=== PATIENT | female | born 1975 | race Caucasian/White ===

== ENCOUNTER 2018-01-30 14:56 | Emergency (ER) | payer OTHER ==
[2018-01-30 16:30] LABS: Absolute Lymphocytes (CBC) 2.4 K/uL (0.7-4.9); Absolute Monocytes 0.8 K/uL (0.1-1.3); Absolute Neutrophil 7.4 K/uL (1.8-8.0); Basophils % 1.2 % (0-1.3); Eosinophils % 2.6 % (0-4.4); Hematocrit 37.7 % (36.0-45.0); Lymphocytes % 21.3 % (15.3-44.8); MCH 24.6 pg (27.0-35.0); MCV 75.8 fL (80-100); MPV 8.7 fL (7.6-11.3); Monocytes % 7.6 % (3.3-12.3); RBC Red Blood Cell Count 4.98 M/uL (3.86-4.86)
[2018-01-30 16:35] LABS: Glomerular Filtration Rate > 60 mL/min (>60)
[2018-01-30 16:36] LABS: Potassium 3.4 mEq/L (3.6-5.0)
[2018-01-30 16:39] LABS: Urine Blood TRACE (NEG); Urine Glucose NEGATIVE (NEG); Urine Protein NEGATIVE (NEG); Urine Specific Gravity 1.015 (1.005-1.030)
[2018-01-30] MEDS ORDERED: NA CHLORIDE 0.9% 1,000 ML ONE (16:39)
[2018-01-30] MEDS ORDERED: ONDANSETRON 4 MG/2 ML VIAL ONE (16:39)
[2018-01-30 16:42] LABS: Bilirubin Direct 0.1 mg/dL (0-0.2); Bilirubin Total 0.5 mg/dL (0.3-1.2); Magnesium 1.7 mg/dL (1.8-2.5); Protein, Total 7.4 g/dL (6.0-8.3)
[2018-01-30] MEDS ORDERED: POTASSIUM CL SA 10 MEQ TAB PO ONE (17:43)
[2018-01-30] MEDS ORDERED: MAGNESIUM SULFATE 1 gm IVPB 1 GM/100 ML BAG IV ONE (17:44)
--- NOTE | 2018-01-30 17:52 | RAD REPORT ---
EXAM DESCRIPTION: Kike Single View01/30/2018 5:44 pm CLINICAL HISTORY: sob COMPARISON: 2009 FINDINGS: The lungs appear clear of acute infiltrate. The heart is normal size IMPRESSION: No acute abnormalities displayed
--- NOTE | 2018-01-30 18:19 | ER ---
Nurse's Notes [facility] Name: Chloe Eaton Age: 42 yrs Sex: Female : 1975 Arrival Date: 01/30/2018 Time: 15:00 Bed 17 Private MD: Diagnosis: Weakness;Dehydration Presentation: 01/30 15:03 Presenting complaint: Patient states: Last night my blood sugar was 209, and I felt hb awful, I was dizzy, weak, and shaky. This morning it is back down to 117, but I still feel bad. Transition of care: patient was not received from another setting of care. Onset of symptoms was January 29, 2018. Care prior to arrival: None. 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 - Social history:: Smoking status: Patient/guardian denies using tobacco. Screenin:39 Abuse screen: Denies threats or abuse. Denies injuries from another. Nutritional aj1 screening: No deficits noted. Tuberculosis screening: No symptoms or risk factors identified. 16:46 Fall Risk None identified. aj1 Assessment: 15:45 General: Appears in no apparent distress. uncomfortable, ill, Behavior is calm, aj1 cooperative. Pain: Denies pain. Neuro: Level of Consciousness is awake, alert, obeys commands, Oriented to person, place, time, situation, Speech is normal, Facial droop on right, Reports dizziness, weakness Denies blurred vision numbness headache. Cardiovascular: Denies chest pain, Heart tones S1 S2 present Patient's skin is warm and dry. Respiratory: Reports shortness of breath Airway is patent Respiratory effort is even, unlabored, Respiratory pattern is regular, symmetrical, Breath sounds are clear bilaterally. Denies cough. GI: Abdomen is non-distended, Bowel sounds present X 4 quads. Abd is soft and non tender X 4 quads. Reports nausea, Patient currently denies diarrhea, vomiting. : Reports urinary frequency. EENT: No signs and/or symptoms were reported regarding the EENT system. Derm: No signs and/or symptoms reported regarding the dermatologic system. Skin is pink, warm \T\ dry. normal. Musculoskeletal: No signs and/or symptoms reported regarding the musculoskeletal system. Circulation, motion, and sensation intact. 16:45 Reassessment: Patient appears in no apparent distress at this time. No changes from aj1 previously documented assessment. Patient and/or family updated on plan of care and expected duration. Pain level reassessed. Patient is alert, oriented x 3, equal unlabored respirations, skin warm/dry/pink. 17:44 Reassessment: Patient appears in no apparent distress at this time. No changes from aj1 previously documented assessment. Patient and/or family updated on plan of care and expected duration. Pain level reassessed. Patient is alert, oriented x 3, equal unlabored respirations, skin warm/dry/pink. 18:52 Reassessment: Patient appears in no apparent distress at this time. No changes from aj1 previously documented assessment. Patient and/or family updated on plan of care and expected duration. Pain level reassessed. Patient is alert, oriented x 3, equal unlabored respirations, skin warm/dry/pink. Vital Signs: 15:05 BP 165 / 101; Pulse 111; Resp 20; Temp 98.1; Pulse Ox 100% on R/A; Weight 117.93 kg; hb Height 5 ft. 6 in. (167.64 cm); Pain 0/10; 16:33 BP 117 / 72; Pulse 85; Resp 18; Pulse Ox 95% on R/A; aj1 17:45 BP 130 / 79; Pulse 85; Resp 18; Pulse Ox 95% on R/A; aj1 18:53 BP 135 / 87; Pulse 91; Resp 18; Pulse Ox 95% on R/A; aj1 15:05 Body Mass Index 41.96 (117.93 kg, 167.64 cm) hb ED Course: 15:00 Patient arrived in ED. sb2 15:04 Triage completed. hb 15:05 Arm band placed on right wrist. hb 15:24 Julio Zimmerman PA is PHCP. jr8 15:24 Zane Camp MD is Attending Physician. jr8 15:44 Vanessa Pendleton RN is Primary Nurse. aj1 16:00 No provider procedures requiring assistance completed. Initial lab(s) drawn, by me, aj1 sent to lab. Inserted saline lock: 20 gauge in right antecubital area, using aseptic technique. Blood collected. 16:39 Patient has correct armband on for positive identification. Bed in low position. Call aj1 light in reach. Side rails up X 1. Adult w/ patient. Pulse ox on. NIBP on. 17:33 PHCP role handed off by Julio Zimmerman PA kb 17:33 Jenna Peterson FNP-C is PHCP. kb 17:39 X-ray completed. Portable x-ray completed in exam room. Patient tolerated procedure bb2 well. 17:44 XRAY Chest (1 view) In Process Unspecified. EDMS 19:14 IV discontinued, intact, bleeding controlled, No redness/swelling at site. Pressure aj1 dressing applied. Administered Medications: 16:32 Drug: Zofran 4 mg Route: IVP; Site: right antecubital; aj1 19:00 Follow up: Response: No adverse reaction aj1 16:33 Drug: NS 0.9% 1000 ml Route: IV; Rate: 1000 ml; Site: right antecubital; aj1 19:00 Follow up: IV Status: Completed infusion; IV Intake: 1000ml aj1 17:28 Drug: Potassium Chloride 40 mEq Route: PO; aj1 18:54 Follow up: Response: No adverse reaction aj1 17:29 Drug: Magnesium Sulfate 1 grams Route: IVPB; Infused Over: 1 hrs; Site: right aj1 antecubital; 18:54 Follow up: IV Status: Completed infusion; IV Intake: 100ml aj1 Intake: 18:54 IV: 100ml; Total: 100ml. aj1 19:00 IV: 1000ml; Total: 1100ml. aj1 Outcome: 18:18 Discharge ordered by . kb 19:14 Discharged to home ambulatory. aj1 19:14 Condition: good 19:14 Discharge instructions given to patient, Instructed on discharge instructions, follow up and referral plans. Demonstrated understanding of instructions, follow-up care. 19:19 Patient left the ED. aj1 Signatures: Dispatcher [employer] EDMS NicholasTrevorJenna, IVAN-C DAY CARE HOME PROVIDER-CkVanessa Nguyen RN RN aj1 Julio Zimmerman PA PA jr8 Annabella Borges RN RN Marylou Tomlinson bb2 Jeri Paul sb2 Corrections: (The following items were deleted from the chart) 16:32 16:32 Zofran 4 mg IVP in left antecubital aj1 aj1 45 16:39 General: Appears in no apparent distress. uncomfortable, ill, Behavior is calm, aj1 cooperative, aj1 16:39 Pain: Denies pain. aj1 1 16:39 Neuro: Level of Consciousness is awake, alert, obeys commands, Oriented to aj1 person, place, time, situation, Speech is normal, Facial droop on right, Reports dizziness, weakness Denies blurred vision numbness headache aj1 :45 16:39 Cardiovascular: Denies chest pain, Heart tones S1 S2 present Patient's skin is aj1 warm and dry. aj1 :45 16:39 Respiratory: Reports shortness of breath Airway is patent Respiratory effort is aj1 even, unlabored, Respiratory pattern is regular, symmetrical, Breath sounds are clear bilaterally. Denies cough, aj1 16:39 GI: Abdomen is non-distended, Bowel sounds present X 4 quads. Abd is soft and non aj1 tender X 4 quads. Reports nausea, Patient currently denies diarrhea, vomiting, aj11 20: 16:39 : Reports urinary frequency, aj1 aj1 16:39 EENT: No signs and/or symptoms were reported regarding the EENT system. aj1 16:39 Derm: No signs and/or symptoms reported regarding the dermatologic system. Skin aj1 is pink, warm \T\ dry. normal, aj1 16:39 Musculoskeletal: No signs and/or symptoms reported regarding the musculoskeletal aj1 system. Circulation, motion, and sensation intact. aj1
--- NOTE | 2018-01-30 18:19 | EDPHYS ---
Physician Documentation [facility] Name: Chloe Eaton Age: 42 yrs Sex: Female : 1975 Arrival Date: 01/30/2018 Time: 15:00 Bed 17 Private MD: ED Physician Zane Camp HPI: 01/30 16:02 This 42 yrs old Female presents to ER via Ambulatory with complaints of Blood jr8 Sugar Problem. 16:02 Patient stated that she had elevated blood glucose levels yesterday and mildly elevated jr8 today. Has been feeling, weak, dizzy, short of breath. Has also had frequent urination and nausea. Severity of symptoms: At their worst the symptoms were moderate in the emergency department the symptoms are unchanged. The patient has not experienced similar symptoms in the past. The patient has not recently seen a physician. 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 - Social history:: Smoking status: Patient/guardian denies using tobacco. ROS: 16:02 Eyes: Negative for injury, pain, redness, and discharge, ENT: Negative for injury, jr8 pain, and discharge, Neck: Negative for injury, pain, and swelling, Cardiovascular: Negative for chest pain, palpitations, and edema, Back: Negative for injury and pain, MS/Extremity: Negative for injury and deformity, Skin: Negative for injury, rash, and discoloration, Neuro: Negative for headache, weakness, numbness, tingling, and seizure. 16:02 Constitutional: Positive for fatigue, malaise. 16:02 Respiratory: Positive for shortness of breath. 16:02 Abdomen/GI: Positive for nausea, Negative for abdominal pain, vomiting, diarrhea, abdominal cramps, abdominal distension, anorexia, dysphagia, hematemesis, black/tarry stool, rectal pain, rectal bleeding, bowel incontinence, flatulence. 16:02 Endocrine: Positive for polydipsia, polyuria. Exam: 16:02 Eyes: Pupils equal round and reactive to light, extra-ocular motions intact. Lids and jr8 lashes normal. Conjunctiva and sclera are non-icteric and not injected. Cornea within normal limits. Periorbital areas with no swelling, redness, or edema. ENT: Nares patent. No nasal discharge, no septal abnormalities noted. Tympanic membranes are normal and external auditory canals are clear. Oropharynx with no redness, swelling, or masses, exudates, or evidence of obstruction, uvula midline. Mucous membranes moist. Neck: Trachea midline, no thyromegaly or masses palpated, and no cervical lymphadenopathy. Supple, full range of motion without nuchal rigidity, or vertebral point tenderness. No Meningismus. Cardiovascular: Sinus tachycardia with a normal S1 and S2. No gallops, murmurs, or rubs. Normal PMI, no JVD. No pulse deficits. Respiratory: Lungs have equal breath sounds bilaterally, clear to auscultation and percussion. No rales, rhonchi or wheezes noted. No increased work of breathing, no retractions or nasal flaring. Abdomen/GI: Soft, non-tender, with normal bowel sounds. No distension or tympany. No guarding or rebound. No evidence of tenderness throughout. Back: No spinal tenderness. No costovertebral tenderness. Full range of motion. Skin: Warm, dry with normal turgor. Normal color with no rashes, no lesions, and no evidence of cellulitis. MS/ Extremity: Pulses equal, no cyanosis. Neurovascular intact. Full, normal range of motion. Neuro: Awake and alert, GCS 15, oriented to person, place, time, and situation. Cranial nerves II-XII grossly intact. Motor strength 5/5 in all extremities. Sensory grossly intact. Cerebellar exam normal. Normal gait. Vital Signs: 15:05 BP 165 / 101; Pulse 111; Resp 20; Temp 98.1; Pulse Ox 100% on R/A; Weight 117.93 kg; hb Height 5 ft. 6 in. (167.64 cm); Pain 0/10; 16:33 BP 117 / 72; Pulse 85; Resp 18; Pulse Ox 95% on R/A; aj1 17:45 BP 130 / 79; Pulse 85; Resp 18; Pulse Ox 95% on R/A; aj1 18:53 BP 135 / 87; Pulse 91; Resp 18; Pulse Ox 95% on R/A; aj1 15:05 Body Mass Index 41.96 (117.93 kg, 167.64 cm) hb MDM: 15:24 Patient medically screened. 8 17:21 Data reviewed: vital signs, nurses notes, lab test result(s), and as a result, I will jr8 discharge patient. Data interpreted: Pulse oximetry: on room air is 95 %. Interpretation: normal. Counseling: I had a detailed discussion with the patient and/or guardian regarding: the historical points, exam findings, and any diagnostic results supporting the discharge/admit diagnosis, lab results, the need for outpatient follow up, a family practitioner, to return to the emergency department if symptoms worsen or persist or if there are any questions or concerns that arise at home. 01/30 15:35 Order name: Basic Metabolic Panel; Complete Time: 16:43 [facility] 01/30 15:35 Order name: CBC with Diff; Complete Time: 16:37 01/30 15:35 Order name: Creatinine for Radiology; Complete Time: 16:37 01/30 15:35 Order name: Hepatic Function; Complete Time: 16:43 01/30 15:35 Order name: Lipase; Complete Time: 16:43 01/30 15:35 Order name: Magnesium; Complete Time: 16:43 01/30 15:36 Order name: DD; Complete Time: 16:38 01/30 16:36 Order name: Urine Dipstick--Ancillary (enter results); Complete Time: 16:42 01/30 15:35 Order name: IV Saline Lock; Complete Time: 16:16 01/30 15:35 Order name: Labs collected and sent; Complete Time: 16:16 01/30 15:35 Order name: Urine Dipstick-Ancillary (obtain specimen); Complete Time: 16:16 01/30 16:36 Order name: Urine --Ancillary (enter results); Complete Time: 16:42 01/30 17:22 Order name: XRAY Chest (1 view); Complete Time: 17:53 Administered Medications: 16:32 Drug: Zofran 4 mg Route: IVP; Site: right antecubital; aj1 19:00 Follow up: Response: No adverse reaction aj1 16:33 Drug: NS 0.9% 1000 ml Route: IV; Rate: 1000 ml; Site: right antecubital; aj1 19:00 Follow up: IV Status: Completed infusion; IV Intake: 1000ml aj1 17:28 Drug: Potassium Chloride 40 mEq Route: PO; aj1 18:54 Follow up: Response: No adverse reaction aj1 17:29 Drug: Magnesium Sulfate 1 grams Route: IVPB; Infused Over: 1 hrs; Site: right aj1 antecubital; 18:54 Follow up: IV Status: Completed infusion; IV Intake: 100ml aj Disposition: 01/31 07:07 Co-signature as Attending Physician, Zane Camp MD I agree with the assessment and linda plan of care. Disposition: 01/30/18 18:18 Discharged to Home. Impression: Weakness, Dehydration. - Condition is Stable. - Discharge Instructions: Weakness, [id number], Dehydration, Adult, [id number]. - Medication Reconciliation Form, Thank You Letter, Antibiotic Education, Prescription Opioid Use, Work release form form. - Follow up: Emergency Department; When: As needed; Reason: Worsening of condition. Follow up: Private Physician; When: 2 - 3 days; Reason: Recheck today's complaints, Continuance of care, Re-evaluation by your physician. Signatures: Dispatcher [employer] Jenna Hanley, SHERICE LOVE-Vanessa Ng RN RN aj1 Zane Camp MD MD cha Roszak, Josh, PA PA jr8 Annabella Borges RN RN Corrections: (The following items were deleted from the chart) 01/30 16:22 15:43 Basic Metabolic Panel ordered. EDMS EDMS 16:22 15:43 CBC with Automated Diff ordered. EDMS EDMS 16:22 15:43 D-Dimer ordered. EDMS EDMS 16:22 15:43 Lipase ordered. EDMS EDMS 16:22 15:43 Liver (Hepatic) Function ordered. EDMS EDMS 16:22 15:43 Magnesium ordered. EDMS EDMS
== END 2018-01-30 19:19 | disposition home or self-care (01) ==
LOC: ER 14:56
DX: E86.0 Dehydration (principal); R11.0 Nausea; I10 Essential (primary) hypertension; E11.9 Type 2 diabetes mellitus without complications; Z88.0 Allergy status to penicillin; Z88.1 Allergy status to other antibiotic agents
CPT/HCPCS: 36415; 71045; 80048; 80076; 81003; 81025; 83690; 83735; 85025; 85379; 96361; 96365; 96375; 99284; J2405; J3475; J7030

== ENCOUNTER 2018-02-04 13:41 | Emergency (ER) | payer OTHER ==
[2018-02-04] MEDS ORDERED: ONDANSETRON 4 MG/2 ML VIAL ONE (14:20)
[2018-02-04] MEDS ORDERED: NA CHLORIDE 0.9% 1,000 ML ONE ×2 (14:20→16:45)
[2018-02-04 14:42] LABS: Absolute Lymphocytes (CBC) 1.6 K/uL (0.7-4.9); Absolute Monocytes 0.8 K/uL (0.1-1.3); Basophils % 1.3 % (0-1.3); Eosinophils % 2.2 % (0-4.4); Hematocrit 39.4 % (36.0-45.0); Lymphocytes % 14.9 % (15.3-44.8); MCH 24.6 pg (27.0-35.0); MCV 76.4 fL (80-100); MPV 8.7 fL (7.6-11.3); Monocytes % 7.4 % (3.3-12.3); RBC Red Blood Cell Count 5.15 M/uL (3.86-4.86)
[2018-02-04 14:52] LABS: Potassium 3.1 mEq/L (3.6-5.0)
[2018-02-04 14:58] LABS: Albumin 4.4 g/dL (3.2-5.5); Bilirubin Direct 0.1 mg/dL (0-0.2); Bilirubin Total 0.6 mg/dL (0.3-1.2); Protein, Total 7.8 g/dL (6.0-8.3)
[2018-02-04 15:12] LABS: Urine Blood NEGATIVE (NEG); Urine Glucose NEGATIVE (NEG); Urine Protein NEGATIVE (NEG); Urine Specific Gravity 1.015 (1.005-1.030); Urine pH 7.5 (5.0-7.0)
[2018-02-04 15:15] LABS: Urine Bacteria <20 /HPF (<20); Urine Culture Reflex Order NOT NEEDED; Urine RBC <5 /HPF (NONE SEEN)
[2018-02-04] MEDS ORDERED: POTASSIUM CL SA 10 MEQ TAB PO ONE (15:58)
--- NOTE | 2018-02-04 16:38 | ER ---
Nurse's Notes [facility] Name: Chloe Eaton Age: 42 yrs Sex: Female : 1975 Arrival Date: 02/04/2018 Time: 13:42 Bed 15 Private MD: Diagnosis: Dehydration;Hypokalemia;Diarrhea, unspecified Presentation: 02/04 13:43 Presenting complaint: EMS states: pt has had nausea vomiting, general weakness X 1 iw week, was recently seen in ER for similar symptoms, was given electrolytes and felt better, denies pain. Transition of care: patient was not received from another setting of care. Onset of symptoms was January 27, 2018. Care prior to arrival: Glucose check: 194. 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 - Social history:: Smoking status: . Screenin:09 Abuse screen: Denies threats or abuse. Denies injuries from another. Nutritional iw screening: No deficits noted. Tuberculosis screening: No symptoms or risk factors identified. Fall Risk None identified. Assessment: 14:00 General: Appears in no apparent distress. Behavior is calm, cooperative. General: iw Reports feeling ill for fatigue for. Pain: Denies pain. Neuro: Level of Consciousness is awake, obeys commands, Oriented to person, place, time, situation, Moves all extremities. Cardiovascular: Patient's skin is warm and dry. Respiratory: Airway is patent. GI: Abdomen is non-distended, Reports nausea. Derm: Skin is pale. Musculoskeletal: Range of motion: intact in all extremities. 16:45 Reassessment: Patient appears in no apparent distress at this time. Patient and/or iw family updated on plan of care and expected duration. Pain level reassessed. pt still c/o nausea, dizziness, ERP notified, new orders given. 18:00 Reassessment: Patient appears in no apparent distress at this time. Patient and/or iw family updated on plan of care and expected duration. Pain level reassessed. Patient is alert, oriented x 3, equal unlabored respirations, skin warm/dry/pink. Patient states feeling better. Patient states symptoms have improved. Vital Signs: 13:47 BP 110 / 75; Pulse 94; Resp 16; Temp 98.1(O); Pulse Ox 96% on R/A; iw 14:46 BP 130 / 86; Pulse 95; Resp 16; Pulse Ox 93% on R/A; mh5 15:52 BP 139 / 78; Pulse 104; Resp 16; Pulse Ox 97% on R/A; mh5 16:04 BP 141 / 83; Pulse 96; Resp 16; Pulse Ox 97% on R/A; iw ED Course: 13:42 Patient arrived in ED. iw 13:44 Donnie Kaiser MD is Attending Physician. tw4 13:45 Triage completed. iw 13:47 Arm band placed on. iw 13:48 Karen Frey, RN is Primary Nurse. iw 14:00 Patient has correct armband on for positive identification. iw 14:45 Missed attempt(s): 22 gauge in left upper arm. 5 15:00 Initial lab(s) drawn, by [facility], sent to lab. Inserted saline lock: 20 gauge in right iw antecubital area, using aseptic technique. Blood collected. 15:26 Urine collected: clean catch specimen, clear. 5 18:20 No provider procedures requiring assistance completed. IV discontinued, intact, iw bleeding controlled, No redness/swelling at site. Pressure dressing applied. Administered Medications: 14:31 Drug: Zofran 4 mg Route: IVP; Site: right antecubital; iw 15:00 Follow up: Response: No adverse reaction iw 14:31 Drug: NS 0.9% 1000 ml Route: IV; Rate: 1 bolus; Site: right antecubital; iw 17:07 Follow up: IV Status: Completed infusion iw 15:45 Drug: Potassium Chloride 40 mEq Route: PO; iw 16:15 Follow up: Response: No adverse reaction iw 16:30 Drug: NS 0.9% 1000 ml Route: IV; Rate: 1 bolus; Site: right antecubital; iw 17:30 Follow up: IV Status: Completed infusion iw 17:00 Drug: Phenergan 12.5 mg Route: IVP; Site: right antecubital; iw 17:30 Follow up: Response: No adverse reaction; Nausea is decreased iw Point of Care Testing: Blood Glucose: 13:51 Blood Glucose: 163 mg/dL; iw Ranges: Outcome: 16:38 Discharge ordered by . tw4 18:20 Discharged to home via wheelchair, with family. iw 18:20 Condition: good 18:20 Discharge instructions given to patient, family, Instructed on discharge instructions, follow up and referral plans. medication usage, Demonstrated understanding of instructions, follow-up care, medications, Prescriptions given X 2. 18:22 Patient left the ED. iw Signatures: Karen Frey, RN Luz Elena Segal [facility] Donnie Kaiser MD MD tw4
--- NOTE | 2018-02-04 16:38 | EDPHYS ---
Physician Documentation [facility] Name: Chloe Eaton Age: 42 yrs Sex: Female : 1975 Arrival Date: 02/04/2018 Time: 13:42 Bed 15 Private MD: ED Physician Donnie Kaiser HPI: 02/04 16:39 This 42 yrs old Female presents to ER via EMS with complaints of tw4 Nausea/Vomiting. 16:39 The patient presents to the emergency department with nausea, vomiting. 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 - Social history:: Smoking status: . ROS: 16:49 Constitutional: Negative for fever, chills, and weight loss, Eyes: Negative for injury, tw4 pain, redness, and discharge, Cardiovascular: Negative for chest pain, palpitations, and edema, Respiratory: Negative for shortness of breath, cough, wheezing, and pleuritic chest pain. 16:49 Back: Negative for injury and pain, MS/Extremity: Negative for injury and deformity, Skin: Negative for injury, rash, and discoloration. 16:49 Constitutional: Positive for malaise. 16:49 Abdomen/GI: Positive for nausea, Negative for abdominal pain, nausea and vomiting, vomiting, diarrhea, constipation, abdominal cramps, anorexia. Exam: 16:49 Constitutional: This is a well developed, well nourished patient who is awake, alert, tw4 and in no acute distress. Head/Face: Normocephalic, atraumatic. Chest/axilla: Normal chest wall appearance and motion. Nontender with no deformity. No lesions are appreciated. Cardiovascular: Regular rate and rhythm with a normal S1 and S2. No gallops, murmurs, or rubs. Normal PMI, no JVD. No pulse deficits. Respiratory: Lungs have equal breath sounds bilaterally, clear to auscultation and percussion. No rales, rhonchi or wheezes noted. No increased work of breathing, no retractions or nasal flaring. Abdomen/GI: Soft, non-tender, with normal bowel sounds. No distension or tympany. No guarding or rebound. No evidence of tenderness throughout. Back: No spinal tenderness. No costovertebral tenderness. Full range of motion. MS/ Extremity: Pulses equal, no cyanosis. Neurovascular intact. Full, normal range of motion. Neuro: Awake and alert, GCS 15, oriented to person, place, time, and situation. Cranial nerves II-XII grossly intact. Motor strength 5/5 in all extremities. Sensory grossly intact. Cerebellar exam normal. Normal gait. Vital Signs: 13:47 BP 110 / 75; Pulse 94; Resp 16; Temp 98.1(O); Pulse Ox 96% on R/A; iw 14:46 BP 130 / 86; Pulse 95; Resp 16; Pulse Ox 93% on R/A; mh5 15:52 BP 139 / 78; Pulse 104; Resp 16; Pulse Ox 97% on R/A; mh5 16:04 BP 141 / 83; Pulse 96; Resp 16; Pulse Ox 97% on R/A; iw MDM: 13:44 Patient medically screened. tw4 16:49 Differential diagnosis: Nonspecific abd pain, gastritis, appendicitis, viral tw4 gastroenteritis, gastroenteritis. Data reviewed: vital signs, nurses notes. Counseling: I had a detailed discussion with the patient and/or guardian regarding: the historical points, exam findings, and any diagnostic results supporting the discharge/admit diagnosis, lab results. Medication response: Phenergan relieved the patient's nausea, Zofran markedly relieved the patient's nausea. Response to treatment: the patient's symptoms have resolved after treatment, nausea gone, and as a result, I will discharge patient. Special discussion: I discussed with the patient/guardian in detail that at this point there is no indication for admission to the hospital. It is understood, however, that if the symptoms persist or worsen the patient needs to return immediately for re-evaluation. 02/04 13:45 Order name: Amylase, Serum; Complete Time: 15:14 tw4 02/04 13:45 Order name: Basic Metabolic Panel; Complete Time: 15:14 tw4 02/04 13:45 Order name: CBC with Diff; Complete Time: 15:14 tw4 02/04 13:45 Order name: Creatinine for Radiology; Complete Time: 15:14 tw4 02/04 13:45 Order name: Hepatic Function; Complete Time: 15:14 tw4 02/04 13:45 Order name: Lipase; Complete Time: 15:14 tw4 02/04 13:45 Order name: Urine Microscopic Only; Complete Time: 16:01 tw4 02/04 15:07 Order name: Urine Dipstick--Ancillary (enter results); Complete Time: 15:14 bd 02/04 15:07 Order name: Urine --Ancillary (enter results); Complete Time: 15:14 bd 02/04 15:27 Order name: Glucose, Ancillary Testing; Complete Time: 16:01 EDMS 02/04 13:45 Order name: IV Saline Lock; Complete Time: 15:08 tw4 02/04 13:45 Order name: Labs collected and sent; Complete Time: 15:08 tw4 02/04 13:45 Order name: Urine Dipstick-Ancillary (obtain specimen); Complete Time: 15:08 tw4 02/04 14:41 Order name: Urine Test (obtain specimen); Complete Time: 15:08 tw4 Administered Medications: 14:31 Drug: Zofran 4 mg Route: IVP; Site: right antecubital; iw 15:00 Follow up: Response: No adverse reaction iw 14:31 Drug: NS 0.9% 1000 ml Route: IV; Rate: 1 bolus; Site: right antecubital; iw 17:07 Follow up: IV Status: Completed infusion iw 15:45 Drug: Potassium Chloride 40 mEq Route: PO; iw 16:15 Follow up: Response: No adverse reaction iw 16:30 Drug: NS 0.9% 1000 ml Route: IV; Rate: 1 bolus; Site: right antecubital; iw 17:30 Follow up: IV Status: Completed infusion iw 17:00 Drug: Phenergan 12.5 mg Route: IVP; Site: right antecubital; iw 17:30 Follow up: Response: No adverse reaction; Nausea is decreased iw Point of Care Testing: Blood Glucose: 13:51 Blood Glucose: 163 mg/dL; iw Ranges: Critical Glucose Levels:Adult <50 mg/dl or >400 mg/dl <40 mg/dl or >180 mg/dl Disposition: 02/04/18 16:38 Discharged to Home. Impression: Dehydration, Hypokalemia, Diarrhea, unspecified. - Condition is Stable. - Discharge Instructions: Food Choices to Help Relieve Diarrhea, Adult, Dehydration, Adult, Diarrhea, Diarrhea, [id number], Hypokalemia, Rehydration, Adult. - Prescriptions for Zofran 4 mg Oral Tablet - take 1 tablet by ORAL route every 12 hours As needed; 6 tablet. Lomotil 2.5- 0.025 mg Oral Tablet - take 1 tablet by ORAL route every 6 hours As needed; 20 tablet. - Work release form, Family Work Release, Medication Reconciliation Form, Thank You Letter, Antibiotic Education, Prescription Opioid Use form. - Follow up: Private Physician; When: As needed; Reason: Recheck today's complaints, Continuance of care, Re-evaluation by your physician. - Problem is new. - Symptoms have improved. Signatures: Dispatcher [employer] Karen Newton, FRANCO RN Donnie Greene MD MD tw4 Corrections: (The following items were deleted from the chart) 15:13 14:42 UA MICROSCOPIC+U.LAB.BRZ ordered. CARMELA CASEY
[2018-02-04] MEDS ORDERED: PROMETHAZINE 25 MG/ML VIAL ONE (17:17)
== END 2018-02-04 18:22 | disposition home or self-care (01) ==
LOC: ER 13:41
DX: E86.0 Dehydration (principal); E87.6 Hypokalemia; R19.7 Diarrhea, unspecified; I10 Essential (primary) hypertension; E11.9 Type 2 diabetes mellitus without complications; Z88.0 Allergy status to penicillin; Z88.1 Allergy status to other antibiotic agents
CPT/HCPCS: 36415; 80048; 80076; 81003; 81015; 81025; 82150; 82962; 83690; 85025; 96361; 96374; 96375; 99284; J2405; J2550; J7030

== ENCOUNTER 2020-11-18 02:58 | Inpatient (IN) | payer OTHER ==
--- OUTSIDE RECORDS SUMMARY | 2020-11-18 03:00 | XMS REPORT | Continuity of Care Document ---
:1975 Author Organization [facility] t Address [address] [place] [address] [address]. [address] [place] [address] Care Team Providers Name Role Phone Lab, Fam Pob I Attending Clinician Unavailable Doctor Unassigned, Name Attending Clinician Unavailable Problems This patient has no known problems. Allergies, Adverse Reactions, Alerts This patient has no known allergies or adverse reactions. Medications This patient has no known medications. Procedures This patient has no known procedures. Encounters Start End Encounter Admission Attending Care Care Encounter Source Date/Time Date/Time Type Type Clinicians Facility Department ID 2020-10-26 2020-10-26 Laboratory Lab, [facility] [id number] 16:19:22 16:39:22 Only Fam Pob I Health [id number] [place] [id number] Professio [phone] [address] 2020-10-26 2020-10-26 Letter Doctor PAULO [id number] 00:00:00 00:00:00 (Out) UnassignedSOFYA [id number] [place] [facility] [phone] [id number] Results This patient has no known results.
--- OUTSIDE RECORDS SUMMARY | 2020-11-18 03:00 | XMS REPORT | Summary of Care ---
:1975 Author Organization [facility] Address [address] [place] [id number] Care Team Providers Name Role Phone Pcp, Does Not Have A Primary Care Provider Reason for Visit Reason Comments LAB Encounter Details Date Type Department Care Team Description 10/26/2020 Laboratory Only [facility] Family Eli Torrez, ATHLETIC COORDINATOR [id number] [place] [address] Exposure to Medicine - [place] [facility], Adc Fam Pob I SARS-associated [address] [place] [address] coronaviru s ([address] Dx) [place] [address] Allergies Not on Filedocumented as of this encounter (statuses as of 10/26/2020) Medications Not on filedocumented as of this encounter (statuses as of 10/26/2020) Active Problems Not on filedocumented as of this encounter (statuses as of 10/26/2020) Social History Tobacco Use Types Packs/Day Years Used Date Never Assessed Sex Assigned at Date Recorded Not on file documented as of this encounter Last Filed Vital Signs Not on filedocumented in this encounter Nursing Notes Nazia Chiang LVN - 10/26/2020 4:20 PM CSTRicardoorlin Eaton is a 45 year old female here for a Rule Out Covid-19 Nasopharyngeal Swab. Patient educated on plan of care for visit, swabbing technique, risks and benefits of test and length of time to receive results. Verbal consent obtained to perform test. CDC Fact Sheet for Patients providedto patient. All droplet and contact precautions taken with appropriate PPE worn while interacting with patient. - Goggles - N95 Mask - Gloves - Gown RR=18 O2 Sat=98% Patient swabbed using appropriate nasopharyngeal technique, and patient tolerated well. Patient was discharged in stable condition. 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 documented in this encounter Plan of Treatment Name Type Priority Associated Diagnoses Date/Ti me COVID-19 (ID NOW LAB Routine Exposure to 10/26/2020 4:20 PM SOFT SHOE DANCER RAPID TESTING) SARS-associated coronavirus Name Type Priority Associated Diagnoses Order S chedule COVID-19 (ID NOW LAB Routine Exposure to SARS-associa al Expected: 10/26/2020, RAPID TESTING) coronavirus Expires: 10/06 Health Maintenance Due Date Last Done Comments Depression Screening 1985 DTaP,Tdap,and Td Vaccines (1 - 1992 Tdap) PAP SMEAR 1994 Breast Cancer Screening 2013 (MAMMOGRAM) INFLUENZA VACCINE (#1) 2020 Colorectal Cancer Screening 2023 PNEUMOCOCCAL 0-64 YEARS COMBINED Aged Out No longer eligible based on SERIES patient's age to complete this topic documented as of this encounter Results Not on filedocumented in this encounter Visit Diagnoses Diagnosis Exposure to SARS-associated coronavirus - Primary documented in this encounter Additional Health Concerns Infection Onset Date Last Indicated Resolved Time COVID-19 Rule Out 10/26/2020 10/26/2020 documented as of this encounter
--- OUTSIDE RECORDS SUMMARY | 2020-11-18 03:00 | XMS REPORT | Summary of Care ---
:1975 Author Organization [facility] - [facility] Address [address] [place] [address] Care Team Providers Name Role Phone Pcp, Does Not Have A Primary Care Provider Encounter Details Date Type Department Care Team Description 10/26/2020 Letter (Out) [facility] [employer] Message s Doctor Unassigned, No [address] [facility] [address] [address] [facility] [phone] [place] [address] Allergies Not on Filedocumented as of this [...] Signs Not on filedocumented in this encounter Plan of Treatment Health Maintenance Due Date Last Done Comments Depression Screening 1985 DTaP,Tdap,and Td Vaccines (1 - 1992 Tdap) PAP SMEAR 1994 Breast Cancer Screening 2013 (MAMMOGRAM) INFLUENZA VACCINE (#1) 2020 Colorectal Cancer Screening 2023 PNEUMOCOCCAL 0-64 YEARS COMBINED Aged Out No longer eligible based on SERIES patient's age to complete this topic documented as of this encounter Results Not on filedocumented in this encounter Additional Health Concerns Infection Onset Date Last Indicated Resolved Time COVID-19 Rule Out 10/26/2020 10/26/2020 documented as of this encounter
[2020-11-18] MEDS ORDERED: NA CHLORIDE 0.9% 2,000 ML ONE (03:41)
--- NOTE | 2020-11-18 03:42 | ER ---
Nurse's Notes [facility] Name: Chloe Eaton Age: 45 yrs Sex: Female : 1975 Arrival Date: 11/18/2020 Time: 03:01 Bed 7 Private MD: Bhavin Bay Diagnosis: SARS-associated coronavirus as the cause of diseases classified elsewhere-Covid 19 positive;Pneumonia due to other specified bacteria;Hypoxemia;Essential (primary) hypertension;Type 2 diabetes mellitus Presentation: 11/18 03:14 Chief complaint: Patient states: I got tested positive last 11/08/[address] yesterday I started to have shortness of breath, headache and fever. Coronavirus screen: Client denies travel out of the [place] in the last 14 days. fatigue, headache, shortness of breath, Client presents with at least one sign or symptom that may indicate coronavirus-19. Standard/surgical mask placed on the client. Provider contacted for isolation considerations. Client reports previous positive COVID test result. Date of collection: November 08, 2020. Ebola Screen: Patient negative for fever greater than or equal to 101.5 degrees Fahrenheit, and additional compatible Ebola Virus Disease symptoms Patient denies exposure to infectious person. Patient denies travel to an Ebola-affected area in the 21 days before illness onset. Initial Sepsis Screen: Does the patient meet any 2 criteria? RR > 20 per min. HR > 90 bpm. Does the patient have a suspected source of infection? Yes: Productive cough/pneumonia Risk Assessment: Do you want to hurt yourself or someone else? Patient reports no desire to harm self or others. Onset of symptoms was November 17, 2020. 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 - Social history:: Smoking status: unknown Patient/guardian denies using alcohol, street drugs. - Family history:: not pertinent. Screenin:31 Abuse screen: Denies threats or abuse. Nutritional screening: No deficits noted. rr5 Tuberculosis screening: No symptoms or risk factors identified. Fall Risk IV access (20 points). Assessment: 03:55 General: Appears uncomfortable, Behavior is restless. Pain: Denies pain. Neuro: Level rv of Consciousness is awake, alert, obeys commands, Oriented to person, place, time, situation. Cardiovascular: Patient's skin is warm and dry. Respiratory: Airway is patent Respiratory effort is labored, Respiratory pattern is tachypnea. Derm: Skin is pink, warm \T\ dry. 04:15 Reassessment: Brian () [phone]. rv 05:19 Reassessment: Patient and/or family updated on plan of care and expected duration. Pain ea level reassessed. Patient is alert, oriented x 3, equal unlabored respirations, skin warm/dry/pink. Patient states feeling better. Patient states symptoms have improved. Vital Signs: 03:14 BP 122 / 85; Pulse 109; Resp 33; Temp 97.2; Pulse Ox 82% on R/A; Weight 117.93 kg; rr5 Height 5 ft. 6 in. (167.64 cm); Pain 5/10; 04:00 BP 122 / 61; Pulse 101; Resp 25; Pulse Ox 90% on 2 lpm NC; ea 03:14 Body Mass Index 41.96 (117.93 kg, 167.64 cm) rr5 ED Course: 03:01 Patient arrived in ED. es 03:01 Bhavin Bay MD is Private Physician. es 03:04 Zane Camp MD is Attending Physician. linda 03:15 Patel Wolfe RN is Primary Nurse. rv 03:17 Triage completed. rr5 03:20 Arm band placed on right wrist. rr5 03:25 Inserted saline lock: 20 gauge in right antecubital area, using aseptic technique. rr5 Blood collected. Oxygen administration via nasal cannula \T\ 2L/min Response to oxygen therapy: symptoms improved. 03:31 Patient has correct armband on for positive identification. Placed in gown. Bed in low rr5 position. Call light in reach. Side rails up X2. ekg monitor on. Pulse ox on. NIBP on. 03:39 Brett Saldaña is Hospitalizing Provider. linda 03:42 Chest Single View XRAY In Process Unspecified. EDMS 04:16 No provider procedures requiring assistance completed. Patient admitted, IV remains in rv place. 04:56 CT Chest For PE Angio In Process Unspecified. EDMS Administered Medications: 03:30 Drug: NS 0.9% (30 ml/kg) 30 ml/kg Route: IV; Rate: bolus; Site: right antecubital; rr5 03:50 Drug: Rocephin 1 grams Route: IV; Rate: per protocol; Site: right antecubital; rv 04:34 Follow up: Response: No adverse reaction; IV Status: Completed infusion; IV Intake: 10mlrv 04:03 Drug: Decadron - Dexamethasone 10 mg Route: IVP; Site: right antecubital; rv 04:54 Follow up: Response: No adverse reaction rv 04:03 Drug: Albuterol HFA Inhaler 2 puffs Route: Inhalation; rv 04:53 Follow up: Response: No adverse reaction rv 04:03 Drug: Aspirin 81 mg Route: PO; rv 04:52 Follow up: Response: No adverse reaction rv 04:04 Drug: Pepcid 20 mg Route: IVP; Site: right antecubital; rv 04:53 Follow up: Response: No adverse reaction rv 04:07 Drug: Zithromax 500 mg Route: IVPB; Infused Over: 1 hrs; Site: right antecubital; rv 04:21 Drug: NS 0.9% 1000 ml Route: IV; Rate: 125 ml/hr; Site: right antecubital; rv 04:53 Follow up: IV Status: Infusion continued upon admission rv 05:16 Drug: Potassium Effervescent Tablet 50 mEq Route: PO; rv Intake: 04:34 IV: 10ml; Total: 10ml. rv Outcome: 03:42 Decision to Hospitalize by Provider. linda 04:16 Instructed on the need for admit, Demonstrated understanding of instructions. rv 05:21 Admitted to ER Hold. Please see [facility] for further documentation. ea 05:21 Condition: stable 11/19 03:23 Patient left the ED. ea Signatures: Dispatcher [employer] Zane Cheung MD MD cha Salyer, Edna es Herrera Nancy 3 Sonia Smith RN RN Patel Hussein RN Santosh Caldwell RN RN rr5 Corrections: (The following items were deleted from the chart) 11/18 09:19 09:13 Inserted saline lock: 20 gauge in left antecubital area, using aseptic technique. dh3 Blood collected. 3
--- NOTE | 2020-11-18 03:42 | EDPHYS ---
Physician Documentation [facility] Name: Chloe Eaton Age: 45 yrs Sex: Female : 1975 Arrival Date: 11/18/2020 Time: 03:01 Bed 7 Private MD: Bhavin Bay ED Physician Zane Camp HPI: 11/18 03:28 This 45 yrs old Female presents to ER via Wheelchair with complaints of linda Shortness Of Breath, Cough. 03:28 The patient has shortness of breath at rest, with light activity. Onset: The linda symptoms/episode began/occurred 3 day(s) ago. Duration: The symptoms are continuous, and are steadily getting worse. The patient's shortness of breath is aggravated by coughing, supine position, talking, walking, is alleviated by elevating head, rest, sitting up, application of supplemental oxygen. Associated signs and symptoms: Pertinent positives: non-productive cough. Severity of symptoms: At their worst the symptoms were mild moderate in the emergency department the symptoms. The patient has experienced a previous episode. 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 - Social history:: Smoking status: unknown Patient/guardian denies using alcohol, street drugs. - Family history:: not pertinent. ROS: 03:28 Constitutional: Negative for fever, chills, and weight loss, Eyes: Negative for injury, linda pain, redness, and discharge, ENT: Negative for injury, pain, and discharge, Neck: Negative for injury, pain, and swelling, Cardiovascular: Negative for chest pain, palpitations, and edema, Abdomen/GI: Negative for abdominal pain, nausea, vomiting, diarrhea, and constipation, Back: Negative for injury and pain, : Negative for injury, bleeding, discharge, and swelling, MS/Extremity: Negative for injury and deformity, Skin: Negative for injury, rash, and discoloration, Neuro: Negative for headache, weakness, numbness, tingling, and seizure. 03:28 Respiratory: Positive for cough, shortness of breath, at rest. Exam: 03:28 Constitutional: This is a well developed, well nourished patient who is awake, alert, linda and in no acute distress. Head/Face: Normocephalic, atraumatic. Eyes: Pupils equal round and reactive to light, extra-ocular motions intact. Lids and lashes normal. Conjunctiva and sclera are non-icteric and not injected. Cornea within normal limits. Periorbital areas with no swelling, redness, or edema. ENT: Nares patent. No nasal discharge, no septal abnormalities noted. Tympanic membranes are normal and external auditory canals are clear. Oropharynx with no redness, swelling, or masses, exudates, or evidence of obstruction, uvula midline. Mucous membranes moist. Neck: Trachea midline, no thyromegaly or masses palpated, and no cervical lymphadenopathy. Supple, full range of motion without nuchal rigidity, or vertebral point tenderness. No Meningismus. Chest/axilla: Normal chest wall appearance and motion. Nontender with no deformity. No lesions are appreciated. Abdomen/GI: Soft, non-tender, with normal bowel sounds. No distension or tympany. No guarding or rebound. No evidence of tenderness throughout. Back: No spinal tenderness. No costovertebral tenderness. Full range of motion. Female : Normal external genitalia. Skin: Warm, dry with normal turgor. Normal color with no rashes, no lesions, and no evidence of cellulitis. MS/ Extremity: Pulses equal, no cyanosis. Neurovascular intact. Full, normal range of motion. Neuro: Awake and alert, GCS 15, oriented to person, place, time, and situation. Cranial nerves II-XII grossly intact. Motor strength 5/5 in all extremities. Sensory grossly intact. Cerebellar exam normal. Normal gait. 03:28 Cardiovascular: Rate: tachycardic, Rhythm: regular, Pulses: Pulses are 4+ in bilateral radial, brachial, femoral, popliteal, posterior tibial and and dorsalis pedis arteries.. Heart sounds: normal, JVD: is not appreciated. 03:28 Musculoskeletal/extremity: DVT Exam: No signs of deep vein thrombosis. no pain, no swelling, no tenderness, negative Homans' sign noted on exam, no appreciated bluish discoloration, no erythema, no increased warmth. 03:34 ECG was reviewed by the Attending Physician. linda Vital Signs: 03:14 BP 122 / 85; Pulse 109; Resp 33; Temp 97.2; Pulse Ox 82% on R/A; Weight 117.93 kg; rr5 Height 5 ft. 6 in. (167.64 cm); Pain 5/10; 04:00 BP 122 / 61; Pulse 101; Resp 25; Pulse Ox 90% on 2 lpm NC; ea 03:14 Body Mass Index 41.96 (117.93 kg, 167.64 cm) rr5 MDM: 03:08 Patient medically screened. linda 03:32 Differential diagnosis: Anemia asthma, Bronchitis CHF exacerbation, pneumonia, linda pulmonary edema, Pulmonary Embolism reactive airway disease. Antibiotic administration: Rocephin and Zithromax given. The patient's Wells Deep Vein Thrombosis Score was calculated as follows: Heart Rate >100 BPM (1.5 Pts) Total Score: 0-2 Pts- Low Risk. The patient's pulmonary embolism risk score was calculated as follows: the patients heart rate is greater than 100 beats per minute (1.5 Pts) Total Score: 0-2 points. This patient was found to be at low risk for a pulmonary embolism by using the Well's assessment criteria. Immunization status:. Data reviewed: vital signs, nurses notes, lab test result(s), EKG, radiologic studies, plain films. Data interpreted: color television console monitor: rate is 109 beats/min, rhythm is regular, Pulse oximetry: on room air is 82 %. Test interpretation: by ED physician or midlevel provider: ECG, plain radiologic studies. Counseling: I had a detailed discussion with the patient and/or guardian regarding: the historical points, exam findings, and any diagnostic results supporting the discharge/admit diagnosis, lab results, radiology results, the need for further work-up and treatment in the hospital. 11/18 03:21 Order name: Amylase, Serum rr5 11/18 03:21 Order name: Basic Metabolic Panel; Complete Time: 04:48 11/18 03:21 Order name: Blood Culture Adult (2) 11/18 03:21 Order name: CBC with Diff; Complete Time: 04:12 11/18 03:21 Order name: Ckmb; Complete Time: 04:48 11/18 03:21 Order name: CPK; Complete Time: 04:48 11/18 03:21 Order name: Lactate; Complete Time: 04:12 11/18 03:21 Order name: LFT's; Complete Time: 04:48 11/18 03:21 Order name: Lipase; Complete Time: 04:48 11/18 03:21 Order name: Procalcitonin 11/18 03:21 Order name: Protime (+inr); Complete Time: 04:12 11/18 03:21 Order name: Ptt, Activated; Complete Time: 04:12 11/18 03:21 Order name: Troponin (emerg Dept Use Only); Complete Time: 04:48 11/18 03:21 Order name: Urine Microscopic Only 11/18 03:22 Order name: Amylase; Complete Time: 04:48 EDMS 11/18 04:19 Order name: NT PRO-BNP; Complete Time: 04:48 EDMS 11/18 04:19 Order name: C-Reactive Protein; Complete Time: 04:48 EDMS 11/18 04:19 Order name: Magnesium; Complete Time: 04:48 EDMS 11/18 04:19 Order name: Ferritin; Complete Time: 04:48 EDMS 11/18 03:21 Order name: Chest Single View XRAY 11/18 03:21 Order name: Accucheck; Complete Time: 04:14 11/18 03:21 Order name: Cardiac monitoring; Complete Time: 04:15 11/18 03:21 Order name: EKG - Nurse/Tech; Complete Time: 04:14 11/18 03:21 Order name: IV Saline Lock - Large Bore; Complete Time: 04:14 11/18 03:21 Order name: Labs collected and sent; Complete Time: 04:14 11/18 03:21 Order name: O2 Per Protocol; Complete Time: 04:14 14 03:21 Order name: O2 Sat Monitoring; Complete Time: 04:15 rr5 11/18 03:27 Order name: EKG; Complete Time: 03:29 linda 11/18 03:27 Order name: Cardiac monitoring; Complete Time: 03:31 linda 11/18 03:27 Order name: EKG - Nurse/Tech; Complete Time: 03:31 linda 11/18 03:27 Order name: CT Chest For PE Angio [facility] 11/18 04:22 Order name: CONS Physician Consult EDFL 11/18 05:16 Order name: SARS-COV-2 RT PCR [facility]FL 11/18 05:49 Order name: Urine Dipstick--Ancillary (enter results) ds4 11/18 06:19 Order name: Urine Dipstick-Ancillary [facility]FL 11/18 08:05 Order name: Glucose, Ancillary Testing [facility]FL 11/18 11:28 Order name: Potassium [facility]FL 11/18 11:49 Order name: Glucose, Ancillary Testing [facility] 11/18 16:48 Order name: Glucose, Ancillary Testing [facility] 11/18 22:09 Order name: Glucose, Ancillary Testing [facility] 11/18 03:27 Order name: IV Saline Lock; Complete Time: 03:31 [facility] 11/18 03:27 Order name: Labs collected and sent; Complete Time: 03:31 [facility] 11/18 03:27 Order name: O2 Per Protocol; Complete Time: 03:31 [facility] 11/18 03:27 Order name: O2 Sat Monitoring; Complete Time: 03:31 [facility] 11/18 03:27 Order name: Urine Dipstick-Ancillary (obtain specimen); Complete Time: 05:48 [facility] EC:34 Rate is 100 beats/min. Rhythm is regular. QRS [place] is Normal. [place] interval is normal. [facility] QRS interval is normal. QT interval is normal. No Q waves. T waves are Normal. No ST changes noted. Clinical impression: NSR w/ Non-specific ST/T Changes and No evidence of ischemia. Interpreted by me. Reviewed by me. Administered Medications: 03:30 Drug: NS 0.9% (30 ml/kg) 30 ml/kg Route: IV; Rate: bolus; Site: right antecubital; rr5 03:50 Drug: Rocephin 1 grams Route: IV; Rate: per protocol; Site: right antecubital; rv 04:34 Follow up: Response: No adverse reaction; IV Status: Completed infusion; IV Intake: 10mlrv 04:03 Drug: Decadron - Dexamethasone 10 mg Route: IVP; Site: right antecubital; rv 04:54 Follow up: Response: No adverse reaction rv 04:03 Drug: Albuterol HFA Inhaler 2 puffs Route: Inhalation; rv 04:53 Follow up: Response: No adverse reaction rv 04:03 Drug: Aspirin 81 mg Route: PO; rv 04:52 Follow up: Response: No adverse reaction rv 04:04 Drug: Pepcid 20 mg Route: IVP; Site: right antecubital; rv 04:53 Follow up: Response: No adverse reaction rv 04:07 Drug: Zithromax 500 mg Route: IVPB; Infused Over: 1 hrs; Site: right antecubital; rv 04:21 Drug: NS 0.9% 1000 ml Route: IV; Rate: 125 ml/hr; Site: right antecubital; rv 04:53 Follow up: IV Status: Infusion continued upon admission rv 05:16 Drug: Potassium Effervescent Tablet 50 mEq Route: PO; rv Disposition: 11/18/20 03:42 Hospitalization ordered by Brett Saldaña for Inpatient Admission. Preliminary diagnosis are SARS-associated coronavirus as the cause of diseases classified elsewhere - Covid 19 positive, Pneumonia due to other specified bacteria, Hypoxemia, Essential (primary) hypertension, Type 2 diabetes mellitus. - Bed requested for Telemetry/MedSurg (Inpatient). - Status is Inpatient Admission. ea - Condition is Fair. - Problem is new. - Symptoms have improved. Signatures: Dispatcher [employer] EDMS Neva Tello RN RN mw Woody, Diana, RN RN dw Anderson, Corey, MD MD cha Roszak, Josh, PA PA [id number] Sonia Smith RN RN ea Vicente, Ronaldo, RN RN rv Roque, Raymond RN RN rr5 Corrections: (The following items were deleted from the chart) 03:38 03:29 Chest Single View+RAD.RAD.BRZ ordered. EDMS EDMS 04:16 03:29 BLOOD CULTURE*+BA.LAB.BRZ ordered. EDMS EDMS 04:17 03:29 CBC+H.LAB.BRZ ordered. EDMS EDMS 04:17 03:29 PROTIME (+INR)+COAG.LAB.BRZ ordered. EDMS EDMS 04:18 03:29 BASIC METABOLIC PANEL+C.LAB.BRZ ordered. EDFL EDMS 04:18 03:29 HEPATIC FUNCTION+C.LAB.BRZ ordered. EDFL EDMS 04:18 03:29 MAGNESIUM+C.LAB.BRZ ordered. EDFL EDMS 04:18 03:29 PROBNP+C.LAB.BRZ ordered. EDFL EDMS 04:18 03:29 TROPONIN (EMERG DEPT USE ONLY)+C.LAB.BRZ ordered. EDFL EDMS 04:18 03:29 C-REACTIVE PROTEIN+C.LAB.BRZ ordered. EDFL EDMS 04:18 03:29 FERRITIN+C.LAB.BRZ ordered. EDFL EDMS 04:24 03:43 CORONAVIRUS+MR.LAB.BRZ ordered. EDFL EDMS 04:32 03:42 Hospitalization Ordered by Brett Saldaña for Inpatient Admission. Preliminary dw diagnosis is SARS-associated coronavirus as the cause of diseases classified elsewhere - Covid 19 positive; Pneumonia due to other specified bacteria; Hypoxemia; Essential (primary) hypertension; Type 2 diabetes mellitus. Bed requested for Telemetry/MedSurg (Inpatient). Status is Inpatient Admission. Condition is Fair. Problem is new. Symptoms have improved. linda 05:50 03:21 Urine Dipstick-Ancillary ordered. rr5 ds4 11/19 02:47 11/18 04:32 11/18/2020 03:42 Hospitalization Ordered by Brett Saldaña for Inpatient Admission. Preliminary diagnosis is SARS-associated coronavirus as the cause of diseases classified elsewhere - Covid 19 positive; Pneumonia due to other specified bacteria; Hypoxemia; Essential (primary) hypertension; Type 2 diabetes mellitus. Bed requested for [facility] ER HOLD. Status is Inpatient Admission. Condition is Fair. Problem is new. Symptoms have improved. dw 11/19 03:23 02:47 11/18/2020 03:42 Hospitalization Ordered by Brett Saldaña for Inpatient ea Admission. Preliminary diagnosis is SARS-associated coronavirus as the cause of diseases classified elsewhere - Covid 19 positive; Pneumonia due to other specified bacteria; Hypoxemia; Essential (primary) hypertension; Type 2 diabetes mellitus. Bed requested for Telemetry/MedSurg (Inpatient). Status is Inpatient Admission. Condition is Fair. Problem is new. Symptoms have improved. mw
[2020-11-18] MEDS ORDERED: NA CHLORIDE 0.9% 250 ML ONE (03:50)
[2020-11-18] MEDS ORDERED: dexAMETHasone 10 MG/ML VIAL ONE (03:50)
[2020-11-18] MEDS ORDERED: FAMOTIDINE 20 MG/2 ML VIAL IV ONE ×3 (03:50→23:21)
[2020-11-18] MEDS ORDERED: AZITHROMYCIN 500 MG INJ IVPB ONE (03:50)
[2020-11-18] MEDS ORDERED: ALBUTEROL INHALER 60 PUFF/8 GM IH ONE (03:51)
[2020-11-18] MEDS ORDERED: CEFTRIAXONE/SWI 1gm 0 GM/0 ML SYR ONE (03:51)
[2020-11-18] MEDS ORDERED: CEFTRIAXONE/SWI 1gm 1 GM/10 ML SYR ONE (03:55)
[2020-11-18 03:56] LABS: Absolute Lymphocytes (CBC) 1.1 K/uL (0.7-4.9); Basophils % 0.4 % (0-1.3); Hematocrit 37.8 % (36.0-45.0); Lymphocytes % 12.6 % (15.3-44.8); MPV 8.5 fL (7.6-11.3); RBC Red Blood Cell Count 4.39 M/uL (3.86-4.86)
[2020-11-18] MEDS ORDERED: ONDANSETRON 4 MG/2 ML VIAL ONE (04:00)
[2020-11-18 04:09] LABS: ALT/SGPT 126 U/L (12-78); AST/SGOT 92 U/L (15-37); Albumin 2.8 g/dL (3.4-5.0); Alkaline Phosphatase 90 U/L (45-117); Amylase 30 U/L (25-115); BUN Blood Urea Nitrogen 8 mg/dL (7-18); Bicarbonate 30 mmol/L (21-32); Bilirubin Direct 0.2 mg/dL (0-0.2); Bilirubin Total 0.6 mg/dL (0.2-1.0); CKMB Creatine Kinase MB < 1.0 ng/mL (0.3-3.6); Creatine Phosphokinase 69 U/L (26-192); Glucose Level 220 mg/dL (74-106); Lipase 145 U/L (73-393); Potassium 3.2 mmol/L (3.5-5.1); Protein, Total 7.1 g/dL (6.4-8.2); Sodium Level 139 mmol/L (136-145); Troponin (Emerg Dept Use Only) < 0.02 ng/mL (0.0-0.045)
[2020-11-18] MEDS ORDERED: ASPIRIN 81 MG CHEWABLE TABLET ONE (04:25)
[2020-11-18 04:36] LABS: Ferritin 694.3 ng/mL (8-388); NT PRO-BNP 25 pg/mL (<125)
--- NOTE | 2020-11-18 05:08 | P.HP ---
Certification for Inpatient Patient admitted to: Inpatient With expected LOS: >2 Midnights Patient will require the following post-hospital care: None Practitioner: I am a practitioner with admitting privileges, knowledge of patient current condition, hospital course, and medical plan of care. Services: Services provided to patient in accordance with Admission requirements found in Title 42 Section 412.3 of the Code of Federal Regulations <Vik Zimmerman - Last Filed: 11/18/20 05:03> Patient History Date of Service: 11/18/20 Primary Care Provider: Dr. Bay Reason for admission: Covid Pneumonia, Hypoxia History of Present Illness: This is a 45 y/o F that presented to emergency room tonight for shortness of breath that has increased over the last 72 hours. Patient diagnosed with COVID about 10 days ago. Stated that she has had on/off fevers, body aches, chills, cough, but only within past 72 hours has she started with shortness of breath. Stated that she came in tonight because it has become so bad she is feeling dizzy and lightheaded. Patient in ER presented with tachycardia, tachypnea, and hypoxia with SPO2 of 82%. Patient referred to hospital medicine for admission at that time. Patient currently on 4lpm NC with improved 02 at 92% Home medications list reviewed: Yes - Past Medical/Surgical History Has patient received pneumonia vaccine in the past: No Diabetic: Yes -: NIDDM -: GERD -: HTN -: Migraines -: Sleep Apnea Past Surgical History: Reviewed- Non-Contributory -: Appendectomy -: Foot surgery -: Oral surgery - Family History Family History: Reviewed- Non-Contributory - Social History Smoking Status: Never smoker Smoking therapy provided: No Place of Residence: Home <Lela Zimmermanshua - Last Filed: 11/18/20 05:03> Date of Service: 11/18/20 <maverick bolaños - Last Filed: 11/18/20 18:17> Allergies ciprofloxacin [From Cipro] Allergy (Verified 01/30/18 15:40) Shortness of breath Penicillins Allergy (Verified 01/30/18 15:40) Hives/Rash Review of Systems General: Fever, Chills, Malaise Eyes: Unremarkable ENT: Nose Congestion Respiratory: Cough, Shortness of Breath, SOB with Excertion Cardiovascular: Unremarkable Gastrointestinal: Unremarkable Genitourinary: Unremarkable Musculoskeletal: Unremarkable Integumentary: Unremarkable Neurological: Unremarkable Lymphatics: Unremarkable <Vik Zimmerman - Last Filed: 11/18/20 05:03> Physical Examination - Vital Signs Temperature: 97.2 F Blood Pressure: 122/85 Pulse: 110 Respirations: 33 Pulse Ox (%): 82 (RA) - Physical Exam General: Alert, Oriented x3, Cooperative, Mild distress HEENT: PERRLA, Mucous membr. moist/pink, EOMI Neck: Supple, 2+ carotid pulse no bruit, JVD not distended, No Thyromegaly Respiratory: Clear to auscultation bilaterally Cardiovascular: No edema, Normal pulses, Normal S1 S2, No gallops, No rubs, No murmurs, Other (Tachycardic) Capillary refill: <2 Seconds Gastrointestinal: Normal bowel sounds, Soft and benign, Non-distended, No ascites, No tenderness, No masses, No rebound, No guarding Musculoskeletal: No clubbing, No swelling, No contractures, No erythema, No tenderness, No warmth Integumentary: No rashes, No breakdown, No significant lesion, No tenderness/swelling, No erythema, No warmth, No cyanosis Neurological: Normal speech, Normal strength at 5/5 x4 extr, Normal tone, Sensation intact, Cranial nerves 3-12 intact, Normal reflexes 2+, Normal affect Lymphatics: No axilla or inguinal lymphadenopathy - Studies Laboratory Data (last 24 hrs) 11/18/20 03:27: PT Cancelled, INR Cancelled 11/18/20 03:27: WBC Cancelled, Hgb Cancelled, Hct Cancelled, Plt Count Cancelled 11/18/20 03:27: Sodium Cancelled, Potassium Cancelled, BUN Cancelled, Creatinine Cancelled, Glucose Cancelled, Magnesium Cancelled, Total Bilirubin Cancelled, AST Cancelled, ALT Cancelled, Alkaline Phosphatase Cancelled 11/18/20 03:20: PT 11.8, INR 1.00, APTT 25.8 11/18/20 03:20: WBC 8.8, Hgb 12.8, Hct 37.8, Plt Count 218 11/18/20 03:20: Sodium 139, Potassium 3.2 L, BUN 8, Creatinine 0.77, Glucose 220 H, Magnesium 2.0, Total Bilirubin 0.6, AST 92 H, ALT 126 H, Alkaline Phosphatase 90, Amylase 30, Lipase 145 <Vik Zimmerman - Last Filed: 11/18/20 05:03> - Studies Laboratory Data (last 24 hrs) 11/18/20 03:27: PT Cancelled, INR Cancelled 11/18/20 03:27: WBC Cancelled, Hgb Cancelled, Hct Cancelled, Plt Count Cancelled 11/18/20 03:27: Sodium Cancelled, Potassium Cancelled, BUN Cancelled, Creatinine Cancelled, Glucose Cancelled, Magnesium Cancelled, Total Bilirubin Cancelled, AST Cancelled, ALT Cancelled, Alkaline Phosphatase Cancelled 11/18/20 03:20: PT 11.8, INR 1.00, APTT 25.8 11/18/20 03:20: WBC 8.8, Hgb 12.8, Hct 37.8, Plt Count 218 11/18/20 03:20: Sodium 139, Potassium 3.2 L, BUN 8, Creatinine 0.77, Glucose 220 H, Magnesium 2.0, Total Bilirubin 0.6, AST 92 H, ALT 126 H, Alkaline Phosphatase 90, Amylase 30, Lipase 145 <maverick bolaños - Last Filed: 11/18/20 18:17> Assessment and Plan - Problems (Diagnosis) (1) NIDDY (non-insulin dependent diabetes mellitus in young) Current Visit: Yes Status: Chronic (2) Hypertension Current Visit: Yes Status: Chronic Qualifiers: Hypertension type: essential hypertension Qualified Code(s): I10 - Essential (primary) hypertension (3) Pneumonia due to COVID-19 virus Current Visit: Yes Status: Acute (4) Acute respiratory failure due to COVID-19 Current Visit: Yes Status: Acute (5) Hypokalemia Current Visit: Yes Status: Acute (6) Sleep apnea Current Visit: Yes Status: Chronic Qualifiers: Sleep apnea type: obstructive Qualified Code(s): G47.33 - Obstructive sleep apnea (adult) (pediatric) - Plan 1. Patient will be admitted to COVID unit for further monitoring to include telemetry and continuous pulsoxemetry 2. Patient will remain on NC via 4lpm as of now while maintaining reasonable oxygen saturation. Will upgrade as necessary 3. Steroids will be given in accordance with COVID protocol 4. Pulmonology has been consulted for further recommendations 5. Tight control of glucose with sliding scale and monitoring 6. Labs daily to trend CRP and to assess stability of all other labs Discharge Plan: Home Plan to discharge in: Greater than 2 days - Advance Directives Does patient have a Living Will: No Does patient have a Durable POA for Healthcare: No - Code Status/Comfort Care Code Status Assessed: Yes Code Status: Full Code Critical Care: No Time Spent Managing Pts Care (In Minutes): 80 <Vik Zimmerman - Last Filed: 11/18/20 05:03> Physician Review: Patient Assessed, Agree with Above Assessment and Plan Physician Review Additional Text: Pneumonia due to COVID 19 Acute respiratory failure with hypoxia DM type 2 Plan: IV Solu-Medrol Titrate oxygen Watch for steroid induced hyperglycemia Glucose management with insulin sliding scale. <maverick bolaños - Last Filed: 11/18/20 18:17>
[2020-11-18] MEDS ORDERED: POTASSIUM 25 MEQ EFFERV TAB ONE (05:16)
[2020-11-18 05:35] VITALS: BMI 41.9
[2020-11-18] MEDS ORDERED: GLUCAGON 1 MG/VIAL IM PRN ×2 (05:43→17:47)
[2020-11-18] MEDS ORDERED: D50W 25 GM/50 ML SYRINGE IV PRN (05:43)
[2020-11-18] MEDS ORDERED: ACETAMINOPHEN 325 MG TABLET PO PRN (05:43)
[2020-11-18 06:18] LABS: Urine Blood TRACE (NEG); Urine Glucose NEGATIVE (NEG); Urine Protein NEGATIVE (NEG); Urine Specific Gravity 1.005 (1.005-1.030)
[2020-11-18] MEDS: INSULIN -REGULAR HUMAN 50 UNIT/0.5 ML ML SQ SCH ×4 (07:30→21:00)
[2020-11-18] MEDS ORDERED: INSULIN -REGULAR HUMAN 50 UNIT/0.5 ML ML ONE ×4 (08:30→22:14)
[2020-11-18] MEDS ORDERED: ENOXAPARIN 80 MG/0.8 ML SQ ONE ×2 (08:32→23:21)
[2020-11-18] MEDS ORDERED: METHYLPREDNISOLONE 40 MG INJ ONE (08:32)
[2020-11-18] MEDS ORDERED: ENOXAPARIN 40 MG/0.4 ML SQ ONE ×2 (08:32→23:21)
[2020-11-18] MEDS: Enoxaparin 120 MG/0.8 ML SYR SQ SCH ×2 (08:42→21:00)
[2020-11-18] MEDS: METHYLPREDNISOLONE 125 MG INJ IV SCH ×2 (08:43→21:00)
[2020-11-18] MEDS: FAMOTIDINE 20 MG/2 ML VIAL IV SCH ×2 (08:43→21:00)
[2020-11-18] MEDS ORDERED: METHYLPREDNISOLONE 40 MG INJ IV SCH (09:00)
--- NOTE | 2020-11-18 09:05 | RAD REPORT ---
EXAM DESCRIPTION: RAD - Chest Single View - 11/18/2020 3:42 am CLINICAL HISTORY: SOB Chest pain. COMPARISON: Chest Single View dated 01/30/2018; CHEST SINGLE VIEW dated 06/24/2010 FINDINGS: Portable technique limits examination quality. Mild interstitial lung opacities are present bilaterally likely representing interstitial pneumonia o r bronchitis. The heart is normal in size. No displaced fractures.
--- NOTE | 2020-11-18 10:25 | RAD REPORT ---
EXAM DESCRIPTION: CT Angiography Chest With Intravenous Contrast CLINICAL HISTORY: The patient is 45 years old and is Female; Cough;Dyspnea TECHNIQUE: Axial computed tomographic angiography images of the chest with intravenous contrast. S agittal and coronal reformatted images were created and reviewed. This CT exam was performed using one or more of the following dose reduction techniques: automated exposure control, adjustment of t he mA and/or kV according to patient size, and/or use of iterative reconstruction technique. MIP reconstructed images were created and reviewed. COMPARISON: No relevant prior studies available. FINDINGS: PULMONARY ARTERIES: There are no obvious filling defects identified within the pulmonary arteries to suggest pulmonary embolism. AORTA: No acute findings. No thoracic aortic aneurysm. LUNGS: Extensive bilateral patchy groundglass opacities are noted throughout the lungs. Dependen t atelectasis within the lung bases is also present. The tracheobronchial tree is widely patent. PLEURAL SPACE: Unremarkable. No significant effusion. No pneumothorax. HEART: Unremarkable. No cardiomegaly. No significant pericardial effusion. No evidence of RV dysfunction. BONES/JOINTS: Minimal degenerative change of the spine is present. No acute fracture. No dis location. SOFT TISSUES: Unremarkable. LYMPH NODES: Unremarkable. No enlarged lymph nodes. LIVER: The liver is enlarged and diffusely fatty. IMPRESSION: 1. Commonly reported imaging features of (COVID-19 or viral) pneumonia are present. Ot her processes such as influenza pneumonia and organizing pneumonia, as can be seen with drug toxicity and connective tissue disease, can cause a similar imaging pattern. [id number] 2. No evidence of pulmonary embolism. Electronically signed by: Vale Barlow MD 11/18/2020 5:00 AM PESTIC[employer] USE MEDICAL COORDINATOR Due to temporary technical issues with the PACS/Fluency reporting system, reports are being signed by the in house radiologist without review as a courtesy to ensure prompt reporting. The interpreting r adiologist is fully responsible for the content of the report.
--- NOTE | 2020-11-18 11:21 | EKG ---
Test Date: 2020-11-18 Test Time: 03:23:35 Land Title Examiner: RV MEASUREMENT RESULTS: Intervals: Rate: 100 CO: 144 QRSD: 128 QT: 380 QTc: 490 [place]: P: 53 CO: 144 QRS: 14 T: -1 INTERPRETIVE STATEMENTS: Normal sinus rhythm Right bundle branch block Abnormal ECG No previous ECG available for comparison Electronically Signed On 11-18-20 11:20:41 DINKEY ENGINE FIRER/FIREMAN by Cesar Glover
[2020-11-18] MEDS ORDERED: NA CHLORIDE 0.9% 1,000 ML ONE (16:00)
[2020-11-18] MEDS ORDERED: D50W 25 GM/50 ML VIAL IV PRN (17:47)
[2020-11-18] MEDS ORDERED: INSULIN GLARGINE 100 UNITS/ML SQ SCH (18:00)
--- NOTE | 2020-11-18 18:18 | P.PN ---
Date of Service: 11/18/20 Patient has hyperglycemia. She is currently tolerating 2-3 L of oxygen by nasal cannula. Pulmonary input appreciated. Arranged for home oxygen for discharge. Start Lantus insulin. Metformin on hold given IV contrast use. Check hemoglobin A1c.
[2020-11-18] MEDS ORDERED: ESZOPICLONE 1 MG TAB PO PRN (18:27)
[2020-11-18] MEDS ORDERED: ESZOPICLONE 1 MG TAB ONE (21:32)
[2020-11-18] MEDS ORDERED: METHYLPREDNISOLONE 125 MG INJ ONE (23:20)
[2020-11-19 05:39] LABS: Absolute Lymphocytes (CBC) 0.8 K/uL (0.7-4.9); Basophils % 0.2 % (0-1.3); Hematocrit 36.9 % (36.0-45.0); Lymphocytes % 10.3 % (15.3-44.8); MPV 8.8 fL (7.6-11.3); RBC Red Blood Cell Count 4.25 M/uL (3.86-4.86)
[2020-11-19 06:10] LABS: C-Reactive Protein 68.8 mg/L (<3.00); Ferritin 650.1 ng/mL (8-388)
[2020-11-19] MEDS: INSULIN -REGULAR HUMAN 50 UNIT/0.5 ML ML SQ SCH ×2 (08:00→12:00)
[2020-11-19] MEDS: FAMOTIDINE 20 MG/2 ML VIAL IV SCH (08:24)
[2020-11-19] MEDS: Enoxaparin 120 MG/0.8 ML SYR SQ SCH (08:25)
[2020-11-19] MEDS ORDERED: HOME MED 1 EA UNK (Eszopiclone [Lunesta] 2 MG Tablet) PO SCH (09:00)
[2020-11-19] MEDS ORDERED: CITALOPRAM 10 MG TABLET PO SCH (09:00)
[2020-11-19] MEDS ORDERED: MONTELUKAST 10 MG TAB PO SCH (09:00)
[2020-11-19] MEDS ORDERED: IRBESARTAN 150 MG TAB PO SCH (09:00)
[2020-11-19] MEDS ORDERED: HOME MED 1 EA UNK (Citalopram Hydrobromide [Citalopram Hbr] 20 MG Tablet) PO SCH (09:00)
[2020-11-19] MEDS ORDERED: predniSONE 20 MG TAB PO SCH (09:00)
[2020-11-19] MEDS ORDERED: hydroCHLOROthiazide 12.5 MG CAP PO SCH (09:00)
[2020-11-19] MEDS ORDERED: HOME MED 1 EA UNK (Irbesartan/Hydrochlorothiazide [Avalide 150-12.5 Mg Tablet] 1 EACH Tabl PO SCH (09:00)
[2020-11-19 11:16] VITALS: O2SAT 95
[2020-11-19] MEDS ORDERED: HYDROCODONE/CHLORPHEN 5 ML/OSYR PO PRN (12:17)
[2020-11-19 12:32] VITALS: BP 134/79; TEMP 97.4
--- NOTE | 2020-11-19 13:02 | P.CNS ---
Date of Consult: 11/19/20 Primary Care Provider: Dr. Bay Chief Complaint: Covid Pneumonia, Hypoxia History of Present Illness: Years of age presented to the emergency room with stanford virus pneumonia became progressively more short of breath the preceding 72 hr currently doing better her oxygen saturations have improved Allergies ciprofloxacin [From Cipro] Allergy (Verified 01/30/18 15:40) Shortness of breath Penicillins Allergy (Verified 01/30/18 15:40) Hives/Rash Home Medications: Citalopram Hydrobromide [Citalopram HBr] 20 mg PO DAILY 11/18/20 Eszopiclone [Lunesta] 2 mg PO DAILY 11/18/20 Irbesartan/Hydrochlorothiazide [Avalide 150-12.5 mg Tablet] 1 each PO DAILY 11/18/20 Liraglutide [Victoza 2-Devonte] 1.8 mg SQ DAILY 11/18/20 Metformin HCl [Metformin HCl ER] 500 mg PO Q6HR 11/18/20 Montelukast Sodium 10 mg PO DAILY 11/18/20 Ascorbic Acid [Vitamin C] 2,000 mg PO BID #120 tablet 11/19/20 Cholecalciferol (Vitamin D3) [Vitamin D 5,000 Iu Cap] 5,000 unit PO DAILY #30 cap 11/19/20 Guaifenesin/Dextromethorphan [Robitussin Cough-Chest Dm Liq] 5 ml PO QID PRN #237 ml 11/19/20 Insulin Glargine Human [Lantus*] 10 units SQ DAILY AT SUPPER #10 ml 11/19/20 Zinc Sulfate [Zinc Sulfate*] 220 mg PO DAILY #30 cap 11/19/20 predniSONE [Prednisone*] 20 mg PO BID #21 tab 11/19/20 - Past Medical/Surgical History Diabetic: Yes -: NIDDM -: GERD -: HTN -: Migraines -: Sleep Apnea -: Appendectomy -: Foot surgery -: Oral surgery - Social History Smoking Status: Unknown if ever smoked Place of Residence: Home Review of Systems General: Weakness Respiratory: Cough, Shortness of Breath Physical Examination Temp Pulse Resp BP Pulse Ox 97.4 F 80 16 134/79 91 11/19/20 12:00 11/19/20 12:00 11/19/20 12:00 11/19/20 12:00 11/19/20 12:00 General: Alert, Oriented x3, Mild distress - Problems (1) Pneumonia due to COVID-19 virus Current Visit: Yes Status: Acute Plan: Years of age admitted with pneumonia due to stanford virus as improving recommend discharge on a prednisone 20 b.i.d. for a week then 10 twice a day maximal multi vitamin dose supplementation with vitamin-D vitamin-C and aspirin for anticoagulation follow in with me in 1 week
[2020-11-19] MEDS ORDERED: THIAMINE 200 MG/2 ML INJ IVP SCH (21:00)
[2020-11-20] MEDS ORDERED: ZINC SULFATE 220 MG CAP PO SCH (09:00)
[2020-11-20] MEDS ORDERED: VITAMIN D 1000 UNIT TAB PO SCH (09:00)
--- NOTE | 2020-12-30 08:12 | P.DS ---
Admission Date: 11/18/20 Discharge Date: 11/19/20 Primary Care Provider: Dr. Bay Disposition: ROUTINE DISCHARGE Discharge Condition: FAIR Reason for Admission: Covid Pneumonia, Hypoxia Brief History of Present Illness: 45 y/o woman with a past medical history of hypertension presented to the emergency department with a complaint of progressive shortness of breath of 3 days duration. She was diagnosed with COVID about 10 days ago. She reported intermittent fever and generalized body aches. Patient was hypoxic with SPO2 of 82% on room air. Chest x-ray demonstrated bilateral infiltrates consistent with COVID pneumonia. CTA thorax was done which confirmed bilateral pneumonia, no pulmonary embolism. She was placed on 4 L of oxygen by nasal cannula and admitted for further management. Hospital Course: Patient admitted to the medical floor and started on IV steroid, vitamin-C, vitamin-D and zinc supplementation. Pulmonary was consulted, patient was seen by Dr. Reid who assisted with management. She was stable on 4 L of oxygen by nasal cannula. Home oxygen was arranged and patient discharged with oral prednisone therapy as well as vitamin supplementation. She follow with Dr. Reid within 1 week. Vital Signs/Physical Exam: Temp Pulse Resp BP Pulse Ox 97.4 F 80 16 134/79 91 11/19/20 12:00 11/19/20 12:00 11/19/20 12:00 11/19/20 12:00 11/19/20 12:00 General: Alert, In no apparent distress Respiratory: Other (Nonlabored breathing) Cardiovascular: Regular rate/rhythm Gastrointestinal: Non-distended Integumentary: No rashes Neurological: Other (No focal deficit.) Laboratory Data at Discharge: WBC 8.1 K/uL (4.3-10.9) 11/19/20 04:43 Hgb 12.2 g/dL (12.0-15.0) 11/19/20 04:43 Hct 36.9 % (36.0-45.0) 11/19/20 04:43 Plt Count 260 K/uL (152-406) 11/19/20 04:43 PT Cancelled 11/18/20 03:27 INR Cancelled 11/18/20 03:27 APTT 25.8 SECONDS (24.3-36.9) 11/18/20 03:20 Sodium Cancelled 11/18/20 03:27 Potassium 4.6 mmol/L (3.5-5.1) 11/18/20 11:05 BUN Cancelled 11/18/20 03:27 Creatinine Cancelled 11/18/20 03:27 Glucose Cancelled 11/18/20 03:27 Magnesium Cancelled 11/18/20 03:27 Total Bilirubin Cancelled 11/18/20 03:27 AST Cancelled 11/18/20 03:27 ALT Cancelled 11/18/20 03:27 Alkaline Phosphatase Cancelled 11/18/20 03:27 Triglycerides 225 mg/dL (<150) H 11/19/20 04:43 Cholesterol 149 mg/dL (<200) 11/19/20 04:43 HDL Cholesterol 40 mg/dL (40-60) 11/19/20 04:43 Cholesterol/HDL Ratio 3.73 11/19/20 04:43 Amylase 30 U/L (25-115) 11/18/20 03:20 Lipase 145 U/L (73-393) 11/18/20 03:20 Home Medications: Citalopram Hydrobromide [Citalopram HBr] 20 mg PO DAILY 11/18/20 Eszopiclone [Lunesta] 2 mg PO DAILY 11/18/20 Irbesartan/Hydrochlorothiazide [Avalide 150-12.5 mg Tablet] 1 each PO DAILY 11/18/20 Liraglutide [Victoza 2-Devonte] 1.8 mg SQ DAILY 11/18/20 Metformin HCl [Metformin HCl ER] 500 mg PO Q6HR 11/18/20 Montelukast Sodium 10 mg PO DAILY 11/18/20 Ascorbic Acid [Vitamin C] 2,000 mg PO BID #120 tablet 11/19/20 Cholecalciferol (Vitamin D3) [Vitamin D 5,000 Iu Cap] 5,000 unit PO DAILY #30 cap 11/19/20 Guaifenesin/Dextromethorphan [Robitussin Cough-Chest Dm Liq] 5 ml PO QID PRN #237 ml 11/19/20 Insulin Glargine Human [Lantus*] 10 units SQ DAILY AT SUPPER #10 ml 11/19/20 Zinc Sulfate [Zinc Sulfate*] 220 mg PO DAILY #30 cap 11/19/20 predniSONE [Prednisone*] 20 mg PO BID #21 tab 11/19/20 New Medications: Insulin Glargine Human [Lantus*] 10 units SQ DAILY AT SUPPER #10 ml predniSONE [Prednisone*] 20 mg PO BID #21 tab Guaifenesin/Dextromethorphan [Robitussin Cough-Chest Dm Liq] 5 ml PO QID PRN #237 ml PRN Reason: Cough Ascorbic Acid [Vitamin C] 2,000 mg PO BID #120 tablet Cholecalciferol (Vitamin D3) [Vitamin D 5,000 Iu Cap] 5,000 unit PO DAILY #30 cap Zinc Sulfate [Zinc Sulfate*] 220 mg PO DAILY #30 cap Diet: ADA Activity: Ad kimmie Followup: Mckinley Reid MD [ACTIVE - CAN ADMIT] - 1 Week Bhavin Bay MD [Primary Care Provider] - 1 Week
== END 2020-11-19 14:10 | disposition home or self-care (01) | DRG 177 ==
LOC: ER 02:58 → ERHOLD 04:20 → 4TH 11-19 03:18
PROVIDERS: ADMIT Internal Medicine; ATTEND Internal Medicine
DX: U07.1 COVID-19 (principal); J12.82 Pneumonia due to coronavirus disease 2019; J96.01 Acute respiratory failure with hypoxia; E11.65 Type 2 diabetes mellitus with hyperglycemia; I10 Essential (primary) hypertension; G47.33 Obstructive sleep apnea (adult) (pediatric); E87.6 Hypokalemia; K21.9 Gastro-esophageal reflux disease without esophagitis; R00.0 Tachycardia, unspecified; Z79.4 Long term (current) use of insulin; Z88.1 Allergy status to other antibiotic agents; Z88.0 Allergy status to penicillin; Z79.899 Other long term (current) drug therapy; Z90.49 Acquired absence of other specified parts of digestive tract; Z79.52 Long term (current) use of systemic steroids
CPT/HCPCS: 36415; 71045; 71275; 80048; 80061; 80076; 81003; 82150; 82550; 82553; 82728; 82947; 83036; 83605; 83690; 83735; 83880; 84132; 84145; 84484; 85025; 85610; 85730; 86140; 87040; 93005; 94760; 96365; 96375; 99285; J0456; J0696; J1100; J1650; J1815; J2405; J2920; J2930; J7030; J7050; J7512; Q9967; U0003

== ENCOUNTER 2023-05-10 20:17 | Emergency (ER) | payer BC ==
--- OUTSIDE RECORDS SUMMARY | 2023-05-10 20:29 | XMS REPORT | Continuity of Care Document ---
:1975 Author Organization [facility] t Address [address] [place] [id number] Care Team Providers Name Role Phone PCP, PATIENT DOES NOT HAVE A Primary Care Physician Unavailgian Gibson RN, Tasha Cabral Attending Clinician Unavailable Almaz MORGAN, Bradley Cutler Attending Clinician Orin Davila Attending Clinician Marylou Fish Attending Clinician ORIN MARTINEZ Attending Clinician Unavailable Doctor Unassigned, [place] Attending Clinician Unavailable Lab, Adc Fam Pob I Attending Clinician Unavailable TAMMY BURRIS Attending Clinician Unavailable Payers Payer Name Policy Type Policy Number Effective Date Expiration Date S ource Problems Condition Condition Condition Status Onset Resolution Last Treating Co mments Source Name Details Category Date Date Treatment Clinician Date No known No known Disease Unive rs active active ity of problems problems [facility] Allergies, Adverse Reactions, Alerts Allergy Allergy Status Severity Reaction(s) Onset Inactive Treating Comm ents Source Name Type Date Date Clinician CIPROFLO DRUG Active Other-Cmnt Univ ers XACIN INGREDI 1-10 ity of 00:00: [address] PENICILL Drug Active Rash Univers INS Class 1-10 ity of 00:00: [place] [facility] Ciproflo Propensi Active Other - See SOB U nivers xacin ty to comments 1-10 ity of adverse 00:00: [place] reaction [address] [place] [address] Branch Penicill Propensi Active Rash 2022-0 Univer s ins ty to 1-10 ity of adverse 00:00: [place] reaction 00 Medical s Branch Social History Social Habit Start Date Stop Date Quantity Comments Source Exposure to Yes [facility] SARS-CoV-2 (event) Medica l Branch Tobacco use and 2021-11-14 2021-11-14 Never used [facility] exposure 00:00:00 00:00:00 Medical Branch Sex [birth year] [facility] 00:00:00 00:00:00 Medical Branch Smoking Status Start Date Stop Date Source Never smoker [facility] [place] Medications Ordered Filled Start Stop Current Ordering Indication Dosage Frequency Signature Comments Components Source Medication Medication Date Date Medication? Clinician (SIG) Name Name kimmy Yes inject Univ ers b-vfrm 1-10 under the ity of (AJOVY 11:09: skin. [place] AUTOINJECTO Medical R) 225 Branch mg/1.5 mL AtIn cetirizine Yes Take by Univ ers HCl (ZYRTEC 1-10 mouth. ity of ORAL) 11:09: [place] [address] Medical Branch montelukast Yes Take by Uni vers sodium 1-10 mouth. ity of (SINGULAIR 11:09: [place] ORAL) Medical Branch fluticasone Yes Use in Univ ers propionate 1-10 each ity of (FLONASE 11:09: nostril [place] ALLERGY 36 daily. Medical RELIEF) 50 Branch mcg/actuati on nasal spray esomeprazol Yes Take by Uni vers e magnesium 1-10 mouth. ity of (NEXIUM 11:09: [place] ORAL) Medical Branch metformin Yes Take by Unive rs HCl 1-10 mouth. ity of (METFORMIN 11:09: [place] ORAL) Medical Branch citalopram Yes Take by Univ ers hydrobromid 1-10 mouth. ity of e (CELEXA 11:09: [place] ORAL) Medical Branch semaglutide Yes inject Univ ers (OZEMPIC 1-10 under the ity of [place]) 11:09: skin. [place] [id number] Medical Branch zinc Yes Take by Univers sulfate 1-10 mouth. ity of (ZINC-15 11:09: [place] ORAL) Medical Branch vit A and Yes Take by Unive rs D3 in cod 1-10 mouth. ity of liver oiL 11:09: [place] 4,000 36 Medical unit-400 Branch unit/5 mL Liqd potassium Yes Take by Unive rs (POTASSIMIN 1-10 mouth. ity of ORAL) 11:09: [place] 36 Medical Branch ascorbic Yes 500mg Take 500 Univ ers acid, 1-10 mg by ity of vitamin C, 11:09: mouth. [place] (VITAMIN C) 36 Medical 500 mg Branch tablet Vital Signs Vital Name Observation Time Observation Value Comments Source Systolic blood 2021-11-14 17:05:00 132 mm[Hg] Univer sity of pressure [facility] Diastolic blood 2021-11-14 17:05:00 86 mm[Hg] Unive rsity of [facility] Heart rate 2021-11-14 17:05:00 93 /min [facility] Body temperature 2021-11-14 17:05:00 37.11 [place] [facility] Respiratory rate 2021-11-14 17:05:00 16 /min [facility] Body height 2021-11-14 17:05:00 167.6 cm [facility] Body weight 2021-11-14 17:05:00 120.203 kg [facility] BMI 2021-11-14 17:05:00 42.77 kg/m2 [facility] Oxygen saturation in 2021-11-14 17:05:00 95 /min [facility] Arterial blood by [place] [facility] Pulse oximetry Branch Systolic blood 2021-11-14 17:05:00 132 mm[Hg] Univer sity of [facility] Diastolic blood 2021-11-14 17:05:00 86 mm[Hg] Unive rsity of [facility] Heart rate 2021-11-14 17:05:00 93 /min [facility] Body temperature 2021-11-14 17:05:00 37.11 [place] [facility] Respiratory rate 2021-11-14 17:05:00 16 /min [facility] Body height 2021-11-14 17:05:00 167.6 cm [facility] Body weight 2021-11-14 17:05:00 120.203 kg [facility] BMI 2021-11-14 17:05:00 42.77 kg/m2 [facility] Oxygen saturation in 2021-11-14 17:05:00 95 /min [facility] Arterial blood by [place] [facility] Pulse oximetry Branch Procedures Procedure Date / Time Performing Clinician Source Performed GALV ONLY - INFLUENZA A B 2021-11-14 17:06:00 [facility] Branch COVID-19 (MOLECULAR 2021-11-14 17:06[facility] NUCLEIC ACID AMPLIFICATION) LAB ONLY COVID 2021-11-14 17:06:00 Louisa Arana o f [place] INTERPRETATION [facility] Encounters Start End Encounter Admission Attending Care Care Encounter Source Date/Time Date/Time Type Type Clinicians Facility Department ID 2021-11-15 2021-11-15 Letter PAULO Gibson [id number] Univers 00:00:00 00:00:00 (Out) Tasha COWART [id number] it y of [facility] [id number] Nestor as [phone] [address] 2021-11-15 2021-11-15 Telephone PAULO Muse [id number] Univers 00:00:00 00:00:00 Bradley COWART [id number] i ty of [facility] [id number] Nestor as [phone] [address] 2021-11-15 2021-11-15 Letter Raheem [facility] [id number] Univers 00:00:00 00:00:00 (Out) [facility] [id number] it y of [place] [id number] Nestor as JOAQUIN?BLEA [phone] [address] MEDICAL OFFICE BUILDING 2021-11-14 2021-11-14 Urgent Orin Martinez [facility] [id number] Univers 11:00:00 13:31:14 Care Jenn [facility] [id number] ity of [place] [id number] Nestor as JOAQUIN?BLEA [phone] [address] MEDICAL OFFICE BUILDING 2021-11-14 2021-11-14 Outpatient R [facility] [id number] Univers 11:00:00 13:31:14 OMAYEMI ity [facility] 2021-11-14 2021-11-14 Outpatient R [facility] [id number] Univers 11:00:00 13:31:14 OMAYEMI [facility] 2021-11-14 2021-11-14 [facility] [id number] Univers 11:00:00 11:20:00 Care Jenn, [facility] [id number] ity of [place] [id number] Nestor as JOAQUIN?BLEA [phone] [address] MEDICAL OFFICE BUILDING 2021-11-14 2021-11-14 Orders Doctor PAULO [id number] Univers 00:00:00 00:00:00 Only Unassigned, SOFYA [id number] ity of [place] [facility] [id number] Nestor as [phone] [address] 2020-10-26 2020-10-26 Laboratory Lab, [facility] [id number] 16:19:22 16:39:22 Only Fam Pob I Health [id number] [place] [id number] Professio [phone] nal [address] 2020-10-26 2020-10-26 Outpatient R RODOLFOSYL [facility] [place] [id number] Univers 16:20:00 16:20:00 TAMMY antony [facility] 2020-10-26 2020-10-26 Letter Doctor PAULO [id number] 00:00:00 00:00:00 (Out) Unassigned, SOFYA [id number] [place] [facility] [id number] [id number] Results This patient has no known results.
[2023-05-10] MEDS ORDERED: KETOROLAC 30 MG/ML INJ ONE (21:55)
[2023-05-10] MEDS ORDERED: METOCLOPRAMIDE 10 MG/2mL INJ ONE (21:55)
--- NOTE | 2023-05-10 21:58 | RAD REPORT ---
[facility] CLINICAL HISTORY: syncope COMPARISON: Chest Single View dated 11/18/2020; Chest Single View dated 01/30/2018; CHEST SINGLE VIEW dated 06/24/2010 TECHNIQUE: Portable AP view of the chest. FINDINGS: The lungs are clear. No pneumothorax or effusion. The cardiomediastinal contours are unre markable. IMPRESSION: No acute cardiopulmonary process.
[2023-05-10 22:16] LABS: Absolute Lymphocytes (CBC) 2.3 K/uL (0.7-4.9); Hematocrit 38.5 % (36.0-45.0); Lymphocytes % 24.9 % (15.3-44.8); MCV 84.2 fL (80-100); MPV 8.1 fL (7.6-11.3); RBC Red Blood Cell Count 4.57 M/uL (3.86-4.86)
[2023-05-10 22:28] LABS: Protime INR 0.96
[2023-05-10 22:41] LABS: Albumin 3.6 g/dL (3.4-5.0); Bilirubin Direct 0.1 mg/dL (0-0.2); Bilirubin Indirect, Calculated 0.3 mg/dL (0.2-0.8); Bilirubin Total 0.4 mg/dL (0.2-1.0); Potassium 3.7 mEq/L (3.5-5.1); Troponin High Sensitivity 3.1 pg/mL (<58.9)
--- NOTE | 2023-05-10 22:50 | RAD REPORT ---
EXAM DESCRIPTION: CT - Head Brain Wo Cont - 05/10/2023 10:33 pm CLINICAL HISTORY: DIZZINESS COMPARISON: No comparisons TECHNIQUE: Noncontrast head CT images were obtained without IV contrast. Multiplanar reformats were generated and reviewed. All CT scans are performed using dose optimization technique as appropriate and may include automated exposure control or mA/KV adjustment according to patient size. FINDINGS: No intracranial hemorrhage, mass, or edema. Partially empty sella. Normal ventricular caliber for age. Kurtz-white matter differentiation is preserved, without evidence of acute infarct. No abnormal extra- axial fluid collections. Mastoid air cells are well aerated. Moderate mucosal thickening in the left frontal and left anterior ethmoidal air cells. No acute bony findings. IMPRESSION: No evidence of an acute intracranial process. Left frontal and ethmoidal paranasal sinus mucosal thickening.
--- NOTE | 2023-05-10 23:44 | ER ---
Nurse's Notes [facility] Name: Chloe Eaton Age: 47 yrs Sex: Female : 1975 Arrival Date: 05/10/2023 Time: 20:17 Bed 15 Private MD: Diagnosis: Syncope Near Presentation: 05/10 21:01 Chief complaint: EMS states: 47 year old female reports feeling symptoms of low blood [facility] glucose on our arrival her glucose was 114. She says that she became dizzy, weak, and had a near syncope. 21:01 Coronavirus screen: Vaccine status:. Ebola Screen: No symptoms or risks identified at [facility] this time. Initial Sepsis Screen: Does the patient meet any 2 criteria? No. Patient's initial sepsis screen is negative. Does the patient have a suspected source of infection? No. Patient's initial sepsis screen is negative. Risk Assessment: Do you want to hurt yourself or someone else? Patient reports no desire to harm self or others. Onset of symptoms was May 10, 2023. 21:01 Method Of Arrival: EMS: [place] [id number] 21:01 Acuity: MARIO 3 ha1 Triage Assessment: 21:01 General: Appears comfortable, Behavior is calm, cooperative. Pain: Complains of pain in ha1 headache Pain does not radiate. Pain currently is 7 out of 10 on a pain scale. EENT: No signs and/or symptoms were reported regarding the EENT system. Neuro: Level of Consciousness is awake, alert, obeys commands, Oriented to person, place, time, situation, Reports headache. Cardiovascular: Patient's skin is warm and dry. Respiratory: Airway is patent Trachea midline Respiratory effort is even, unlabored, Respiratory pattern is regular, symmetrical. GI: No signs and/or symptoms were reported involving the gastrointestinal system. Abdomen is non-distended, obese. : No signs and/or symptoms were reported regarding the genitourinary system. Derm: Skin is pink, warm \T\ dry. Musculoskeletal: Circulation, motion, and sensation intact. Range of motion: intact in all extremities. Historical: - Allergies: 21:01 Cipro; ha1 21:01 PENICILLINS; ha1 - PMHx: 21:01 Diabetes - NIDDM; GERD; Hypertension; Migraines; Sleep Apnea; ha1 - Immunization history:: Adult Immunizations up to date. - Social history:: Smoking status: unknown. - Family history:: not pertinent. Screenin:16 Abuse screen: Denies threats or abuse. Denies injuries from another. Nutritional ha1 screening: No deficits noted. Tuberculosis screening: No symptoms or risk factors identified. 05/11 00:13 [facility] ED Fall Risk Assessment (Adult) History of falling in the last 3 months, pf1 including since admission No falls in past 3 months (0 pts) Confusion or Disorientation No (0 pts) Intoxicated or Sedated No (0 pts) Impaired Gait No (0 pts) Mobility Assist Device Used No (0 pt) Altered Elimination No (0 pt) Score/Fall Risk Level 0 - 2 = Low Risk Oriented to surroundings, Maintained a safe environment, Educated pt \T\ family on fall prevention, incl call for assistance when getting out of bed, Assessed \T\ reinforced patient's understanding of fall precautions, Provided non-skid footwear, Hourly rounding (assess needs \T\ fall precautionary measures) done, Used ambulatory aids as needed (educated on \T\ assisted with), Used gait belt as appropriate. Assessment: 05/10 21:01 Reassessment: see triage assessment. ha1 22:00 Reassessment: Patient and/or family updated on plan of care and expected duration. Pain ha1 level reassessed. Patient is alert, oriented x 3, equal unlabored respirations, skin warm/dry/pink. 23:00 Reassessment: Patient and/or family updated on plan of care and expected duration. Pain ha1 level reassessed. Patient is alert, oriented x 3, equal unlabored respirations, skin warm/dry/pink. 05/11 00:00 Reassessment: Patient and/or family updated on plan of care and expected duration. Pain ha1 level reassessed. Patient is alert, oriented x 3, equal unlabored respirations, skin warm/dry/pink. Patient denies pain at this time. Patient states feeling better. Patient states symptoms have improved. Vital Signs: 05/10 21:01 BP 152 / 86; Pulse 83; Resp 20 S; Temp 97.9(O); Pulse Ox 98% on R/A; Weight 117.93 kg; ha1 Height 5 ft. 5 in. ; 22:00 BP 142 / 88; Pulse 74; Resp 19 S; Pulse Ox 98% on R/A; ha1 23:00 BP 137 / 72; Pulse 82; Resp 16 S; Pulse Ox 97% on R/A; ha1 21:01 Body Mass Index 43.27 (117.93 kg, 165.1 cm) ha1 Shani Coma Score: 21:14 Eye Response: spontaneous(4). Motor Response: obeys commands(6). Verbal Response: sp4 oriented(5). Total: 15. NIH Stroke Scale Scores: 21:14 NIHSS Score: 0 sp4 ED Course: 21:01 Patient arrived in ED. sp4 21:01 Osei Pacheco MD is Attending Physician. sp4 21:01 Arm band placed on right wrist. ha1 21:01 Patient has correct armband on for positive identification. Bed in low position. Call pf1 light in reach. Side rails up X2. 21:08 Tressa Velasquez, RN is Primary Nurse. ha1 21:30 Inserted saline lock: 22 gauge in right forearm, using aseptic technique. ha1 21:50 XRAY Chest (1 view) In Process Unspecified. EDMS 22:32 CT Head Brain wo Cont Sent. ha1 22:32 Basic Metabolic Panel Sent. ha1 22:32 CBC with Diff Sent. ha1 22:32 LFT's Sent. ha1 22:32 Magnesium Sent. ha1 22:32 NT PRO-BNP Sent. ha1 22:32 Troponin HS Sent. ha1 22:34 CT Head Brain wo Cont In Process Unspecified. EDMS 23:10 Triage completed. ha1 05/11 00:11 No provider procedures requiring assistance completed. IV discontinued, intact, pf1 bleeding controlled, No redness/swelling at site. Pressure dressing applied. Administered Medications: 05/10 22:03 Drug: Ketorolac IVP 30 mg Route: IVP; Site: left forearm; ha1 23:00 Follow up: Response: No adverse reaction; Marked relief of symptoms; Pain is decreased pf1 05/11 00:12 Follow up: Response: No adverse reaction 1 05/10 22:06 Drug: metoCLOPramide IVP 10 mg Route: IVP; Site: left forearm; ha1 23:00 Follow up: Response: No adverse reaction; Marked relief of symptoms pf1 05/11 00:12 Follow up: Response: No adverse reaction ha1 Medication: 00:13 VIS not applicable for this client. pf1 Outcome: 05/10 23:43 Discharge ordered by . [email or web address] 05/11 00:12 Discharged to home ambulatory, with family. pf1 Condition: improved Discharge instructions given to patient, family, Instructed on discharge instructions, follow up and referral plans. Demonstrated understanding of instructions, follow-up care. 00:13 Patient left the ED. pf1 NIH Stroke Scale - NIH Stroke Score Date: 05/10/2023 Time: 21:14 Total Score = 0 10. Dysarthria (speech clarity - read or repeat words) - 0(Normal) 11. Extinction and Inattention (visual/tactile/auditory/spatial/personal) - 0(No abnormality) 1a. Level of Consciousness (LOC) - 0(Alert) 1b. Level of Consciousness (LOC) (Month \T\ Age) - 0(Both) 1c. LOC Commands (Open \T\ Closes Eyes/Supervisor Production) - 0(Both) 2. Best Gaze (Lateral Gaze Paresis) - 0(Normal) 3. Visual Field Loss - 0(No visual loss) 4. Facial Palsy - 0(Normal) 5a. Left Arm: Motor (10-second hold) - 0(No drift) 5b. Right Arm: Motor (10-second hold) - 0(No drift) 6a. Left Leg: Motor (5-second hold - always test supine) - 0(No drift) 6b. Right Leg: Motor (5-second hold - always test supine) - 0(No drift) 7. Limb Ataxia (finger/nose \T\ heel/medina - test with eyes open) - 0(Absent) 8. Sensory Loss (pinprick arms/legs/face) - 0(Normal) 9. Best Language: Aphasia (description/naming/reading) - 0(No aphasia) Initials: sp4 Signatures: Dispatcher [employer] Tressa Walsh RN RN ha1 Nisa Ho RN RN pf1 Osei Pacheco MD MD sp4 Corrections: (The following items were deleted from the chart) 05/10 22:06 22:06 Ketorolac IVP 30 mg IVP in left forearm ha1 ha1
--- NOTE | 2023-05-10 23:44 | EDPHYS ---
Physician Documentation [facility] Name: Chloe Eaton Age: 47 yrs Sex: Female : 1975 Arrival Date: 05/10/2023 Time: 20:17 Bed 15 Private MD: ED Physician Osei Pacheco HPI: 05/10 21:02 This 47 yrs old Female presents to ER via Unassigned with complaints of sp4 syncope at home, low blood sugar . 21:02 Very pleasant 27-year-old female presents with EMS for near syncopal episode associated sp4 with low blood sugar checked at home at 75. Patient has drunk some Coca-Cola at home and repeat blood sugar at home was 114. Patient reported dizziness and being incoherent for some time but right now she feels improved. Patient complains of associated frontal headache and some vertigo. Patient states this has never happened before. Patient takes metformin and tirzepatide . Historical: - Allergies: 21:01 Cipro; ha1 21:01 PENICILLINS; ha1 - PMHx: 21:01 Diabetes - NIDDM; GERD; Hypertension; Migraines; Sleep Apnea; ha1 - Immunization history:: Adult Immunizations up to date. - Social history:: Smoking status: unknown. - Family history:: not pertinent. ROS: 21:02 Constitutional: Negative for fever, chills, and weight loss, positive for near syncopal sp4 episode Eyes: Negative for injury, pain, redness, and discharge, ENT: Negative for injury, pain, and discharge, Neck: Negative for injury, pain, and swelling, Cardiovascular: Negative for chest pain, palpitations, and edema, Respiratory: Negative for shortness of breath, cough, wheezing, and pleuritic chest pain, Abdomen/GI: Negative for abdominal pain, nausea, vomiting, diarrhea, and constipation, Back: Negative for injury and pain, : Negative for injury, bleeding, discharge, and swelling, MS/Extremity: Negative for injury and deformity, Skin: Negative for injury, rash, and discoloration, Neuro: Negative for weakness, numbness, tingling, and seizure, --positive for headache Psych: Negative for depression, anxiety, Allergy/Immunology: Negative for hives, rash, and allergies Endocrine: Negative for neck swelling, polydipsia, polyuria, polyphagia, and weight changes Hematologic/Lymphatic: Negative for swollen nodes, abnormal bleeding, and unusual bruising Exam: 21:02 Constitutional: This is a well developed, well nourished patient who is awake, alert, sp4 and in no acute distress. Head/Face: Normocephalic, atraumatic. Eyes: Pupils equal round and reactive to light, extra-ocular motions intact. Lids and lashes normal. Conjunctiva and sclera are not injected. Cornea within normal limits. Periorbital areas with no swelling, redness, or edema. ENT: Nares patent. No nasal discharge, no septal abnormalities noted. Tympanic membranes are normal and external auditory canals are clear. Oropharynx with no redness, swelling, or masses, exudates, or evidence of obstruction, uvula midline. Mucous membranes moist. Neck: Trachea midline, no thyromegaly or masses palpated, and no cervical lymphadenopathy. Supple, full range of motion without nuchal rigidity, or vertebral point tenderness. Chest/axilla: Normal chest wall appearance and motion. Nontender with no deformity. No lesions are appreciated. Cardiovascular: Regular rate and rhythm with a normal S1 and S2. No gallops, murmurs, or rubs. Normal PMI, no JVD. No pulse deficits. Respiratory: Lungs have equal breath sounds bilaterally, clear to auscultation and percussion. No rales, rhonchi or wheezes noted. No increased work of breathing, no retractions or nasal flaring. Abdomen/GI: Soft, non-tender, with normal bowel sounds. No distension or tympany. No guarding or rebound. No evidence of tenderness throughout. Back: No spinal tenderness. No costovertebral tenderness. Skin: Warm, dry with normal turgor. Normal color with no rashes, no lesions, and no evidence of cellulitis. MS/ Extremity: Pulses equal, no cyanosis. Neurovascular intact. Full, normal range of motion. Neuro: Awake and alert, GCS 15, oriented to person, place, time, and situation. Cranial nerves II-XII grossly intact. Motor strength 5/5 in all extremities. Sensory grossly intact. Psych: Awake, alert, with orientation to person, place and time. Behavior, mood, and affect are within normal limits 23:31 ECG was reviewed by the Attending Physician. Normal sinus rhythm at the rate of 75. sp4 No ST elevation or depression, right bundle branch block. An electrocardiogram was deferred on this patient Vital Signs: 21:01 BP 152 / 86; Pulse 83; Resp 20 S; Temp 97.9(O); Pulse Ox 98% on R/A; Weight 117.93 kg; ha1 Height 5 ft. 5 in. ; 22:00 BP 142 / 88; Pulse 74; Resp 19 S; Pulse Ox 98% on R/A; ha1 23:00 BP 137 / 72; Pulse 82; Resp 16 S; Pulse Ox 97% on R/A; ha1 21:01 Body Mass Index 43.27 (117.93 kg, 165.1 cm) ha1 NIH Stroke Scale Scores: 21:14 NIHSS Score: 0 sp4 Shani Coma Score: 21:14 Eye Response: spontaneous(4). Motor Response: obeys commands(6). Verbal Response: sp4 oriented(5). Total: 15. MDM: 21:26 Patient medically screened. sp4 23:38 Differential Diagnosis altered mental status, sepsis. Data reviewed: vital signs, sp4 nurses notes, EMS record, old medical records, lab test result(s), EKG, radiologic studies, CT scan, plain films. Consideration of Admission/Observation Patient was admitted/placed on observation. Escalation of care including admission/observation considered. ED course: Patient has no signs of CVA, she has normal work-up, basically normal EKG except for right bundle branch block, she has normal CT head normal chest x-ray, normal labs. Patient is feeling better. Stable for discharge home at this time will advise follow-up with scrub technician in 7 to 10 days for repeat exam in the office.. 05/10 21:01 Order name: Basic Metabolic Panel; Complete Time: 23:31 sp4 05/10 21:01 Order name: CBC with Diff; Complete Time: 23:31 sp4 05/10 21:01 Order name: LFT's; Complete Time: 23:31 sp4 05/10 21:01 Order name: Magnesium; Complete Time: 23:31 sp4 05/10 21:01 Order name: NT PRO-BNP; Complete Time: 23:31 sp4 05/10 21:01 Order name: PT-INR; Complete Time: 23:31 sp4 07/06 21:01 Order name: Troponin HS; Complete Time: 23:31 sp4 05/10 21:32 Order name: Glucose, Ancillary Testing; Complete Time: 23:31 EDMS 07 21:01 Order name: XRAY Chest (1 view); Complete Time: 23:31 sp4 07 21:02 Order name: CT Head Brain wo Cont; Complete Time: 23:31 sp4 07 21:01 Order name: EKG; Complete Time: 21:02 sp4 05/10 21:01 Order name: Cardiac monitoring; Complete Time: 21:51 sp4 05/10 21:01 Order name: EKG - Nurse/Tech; Complete Time: 22:32 sp4 05/10 21:01 Order name: IV Saline Lock; Complete Time: 21:51 sp4 05/10 21:01 Order name: Labs collected and sent; Complete Time: 22:32 sp4 05/10 21:01 Order name: O2 Per Protocol; Complete Time: 21:51 sp4 05/10 21:01 Order name: O2 Sat Monitoring; Complete Time: 21:51 sp4 05/10 21:01 Order name: Accucheck Blood Glucose; Complete Time: 22:32 sp4 EC:31 Rate is 75 beats/min. Rhythm is regular, Normal Sinus Rhythm. QRS Deputy is Normal. CT sp4 interval is normal. QRS interval is prolonged. QT interval is normal. No Q waves. No ST changes noted. Clinical impression: No evidence of ischemia. Interpreted by me. Administered Medications: 22:03 Drug: Ketorolac IVP 30 mg Route: IVP; Site: left forearm; [facility] 23:00 Follow up: Response: No adverse reaction; Marked relief of symptoms; Pain is decreased pf1 05/11 00:12 Follow up: Response: No adverse reaction [facility] 05/10 22:06 Drug: metoCLOPramide IVP 10 mg Route: IVP; Site: left forearm; 1 23:00 Follow up: Response: No adverse reaction; Marked relief of symptoms pf1 05/11 00:12 Follow up: Response: No adverse reaction [facility] Disposition Summary: 05/10/23 23:43 Discharge Ordered Location: Home sp4 Problem: new sp4 Symptoms: have improved sp4 Condition: Stable sp4 Diagnosis - Syncope Near sp4 Followup: sp4 - With: Private Physician - When: 7 - 10 days - Reason: Recheck today's complaints Discharge Instructions: - Discharge Summary Sheet sp4 - Near-Syncope sp4 Forms: - [email or web address] sp4 NIH Stroke Scale - NIH Stroke Score Date: 05/10/2023 Time: 21:14 Total Score = 0 10. Dysarthria (speech clarity - read or repeat words) - 0(Normal) 11. Extinction and Inattention (visual/tactile/auditory/spatial/personal) - 0(No abnormality) 1a. Level of Consciousness (LOC) - 0(Alert) 1b. Level of Consciousness (LOC) (Month \T\ Age) - 0(Both) 1c. LOC Commands (Open \T\ Closes Eyes/Janitorial Services Supervisor) - 0(Both) 2. Best Gaze (Lateral Gaze Paresis) - 0(Normal) 3. Visual Field Loss - 0(No visual loss) 4. Facial Palsy - 0(Normal) 5a. Left Arm: Motor (10-second hold) - 0(No drift) 5b. Right Arm: Motor (10-second hold) - 0(No drift) 6a. Left Leg: Motor (5-second hold - always test supine) - 0(No drift) 6b. Right Leg: Motor (5-second hold - always test supine) - 0(No drift) 7. Limb Ataxia (finger/nose \T\ heel/med[place] - test with eyes open) - 0(Absent) 8. Sensory Loss (pinprick arms/legs/face) - 0(Normal) 9. Best Language: Aphasia (description/naming/reading) - 0(No aphasia) Initials: sp4 Signatures: Dispatcher [employer] Tressa Walsh RN RN ha1 Osei Pacheco MD MD sp4 Nisa Ho RN pf1
[2023-05-11 00:59] VITALS: TEMP 97.9
[2023-05-11 01:02] VITALS: BP 137/72; O2SAT 97
--- NOTE | 2023-05-12 16:20 | EKG ---
Test Date: 2023-05-10 Test Time: 22:17:56 Earth Science Technical Officer: BETHANY MEASUREMENT RESULTS: Intervals: Rate: 75 VA: 146 QRSD: 126 QT: 462 QTc: 515 [place]: P: 14 VA: 146 QRS: -14 T: 17 INTERPRETIVE STATEMENTS: Normal sinus rhythm Right bundle branch block Abnormal ECG Compared to ECG 11/18/2020 03:23:35 No significant changes Electronically Signed On 05-12-23 16:18:07 CDT by Fuentes Scott
== END 2023-05-11 00:13 | disposition home or self-care (01) ==
LOC: ER 20:17
DX: R55 Syncope and collapse (principal); I10 Essential (primary) hypertension; E11.9 Type 2 diabetes mellitus without complications; Z88.0 Allergy status to penicillin; Z88.1 Allergy status to other antibiotic agents
CPT/HCPCS: 93005; 85025; 80048; 36415; 83735; 85610; 82947; 80076; 84484; 83880; 70450; 71045; 96375; 96374; 99284; J2765